=== PATIENT | female | born 1955 | race Hispanic/Latino ===

== ENCOUNTER 2019-04-16 14:35 | Inpatient (IN) | payer MEDICARE ==
[2019-04-16] MEDS ORDERED: oxyCODONE /ACETAMINOPHEN 5-325MG TAB PO PRN (15:27)
[2019-04-16] MEDS ORDERED: POLYETHYLENE GLYCOL 3350 17 GM POWDER PO PRN (15:43)
[2019-04-16] MEDS ORDERED: HYDROcodone/ACETAMINOPHEN 10-325MG TAB PO PRN (15:55)
[2019-04-16] MEDS ORDERED: HYDROcodone/ACETAMINOPHEN 5-325 MG TAB PO PRN (15:55)
[2019-04-16] MEDS: PANTOPRAZOLE 40 MG TAB PO SCH (21:15)
[2019-04-16] MEDS: SODIUM CHLORIDE 1 GM TAB PO SCH (21:16)
[2019-04-16] MEDS: PHENobarbital 32.4 MG TAB PO SCH (21:16)
[2019-04-16] MEDS: PHENYTOIN 100 MG CAPSULE.ER PO SCH (21:16)
[2019-04-16] MEDS: CYCLOBENZAPRINE 10 MG TAB PO SCH (21:16)
[2019-04-16] MEDS: ONDANSETRON 4 MG ODT TAB PO PRN (23:28)
[2019-04-16] MEDS: MELATONIN 5 MG TAB PO PRN (23:32)
[2019-04-17] MEDS: HYDROmorphone 1 MG/1 ML INJ IV PRN ×2 (00:09→13:25)
[2019-04-17 06:10] LABS: Basophils % (Auto) 0.5 % (0.0-1.8); Eosinophils # (Auto) 0.4 K/mm3 (0.0-0.4); Eosinophils % (Auto) 7.8 % (0.0-4.3); Hematocrit 21.9 % (30.3-42.9); Hemoglobin 7.8 gm/dl (10.1-14.3); Lymphocytes # (Auto) 1.1 K/mm3 (1.2-5.4); Lymphocytes % (Auto) 20.6 % (13.4-35.0); Mean Corpuscular HGB Conc 36 % (30-34); Mean Corpuscular Volume 94 fl (79-97); Monocytes # (Auto) 0.3 K/mm3 (0.0-0.8); Platelet Count 214 K/mm3 (140-440); Red Blood Count 2.34 M/mm3 (3.65-5.03); Red Cell Distribution Width 14.2 % (13.2-15.2)
[2019-04-17] MEDS: oxyCODONE 5 MG TAB PO PRN ×2 (06:28→21:29)
[2019-04-17] MEDS: LEVOTHYROXINE 75 MCG TAB PO SCH (06:29)
[2019-04-17] MEDS: PHENYTOIN 100 MG CAPSULE.ER PO SCH ×3 (06:29→21:29)
[2019-04-17 06:30] LABS: Alanine Aminotransferase 10 units/L (7-56); Albumin 2.6 g/dL (3.9-5); BUN/Creatinine Ratio 10; Blood Urea Nitrogen 3 mg/dL (7-17); Calcium 7.7 mg/dL (8.4-10.2); Hemolysis Index 2
[2019-04-17] MEDS: PANTOPRAZOLE 40 MG TAB PO SCH ×2 (08:53→21:30)
[2019-04-17] MEDS: POLYETHYLENE GLYCOL 3350 17 GM POWDER PO SCH (08:53)
[2019-04-17] MEDS: CYCLOBENZAPRINE 10 MG TAB PO SCH ×3 (08:53→21:30)
[2019-04-17] MEDS: SODIUM CHLORIDE 1 GM TAB PO SCH ×2 (08:54→21:28)
[2019-04-17] MEDS: ENOXAPARIN 40 MG/0.4 ML INJ SUB-Q SCH (08:54)
[2019-04-17] MEDS: PHENobarbital 32.4 MG TAB PO SCH ×2 (08:54→21:30)
[2019-04-17] MEDS: levoFLOXacin 500 MG TAB PO SCH ×2 (08:54→10:00)
--- NOTE | 2019-04-17 10:29 | History and Physical Report ---
History of Present Illness Date: 04/17/19 Date of admission: 04/16/19 17:32 Chief Complaint: Right hip fracture History of present illness: 63-year-old female who fell attempting to get out of bed and developed right hip pain. Upon presentation to the ER she was found to have an apparent deformity of the right femur. X-ray confirmed a subtrochanteric displaced hip fracture. Orthopedics was consulted and the patient was scheduled for surgical repair. While in the early stages of her stay she did not receive her antiepileptics and did have a seizure. She has petit mal type seizures. Due to medication she also has chronic hyponatremia/SIADH. Surgery was delayed due to other emergent surgical interventions in the OR. Once she was taken back with Dr. Yen on 04/13 she had an uneventful placement of an intramedullary nail. Pain control is been primary issue for her and she has continued to utilize scheduled oral medications as well as IV Dilaudid. She has impaired hearing. After the patient was medically stabilized they were transferred for further rehabilitation. All available medical records have been reviewed. Plan of care was discussed with patient. I was called last night with a request for continuing her IV Dilaudid. Had the opportunity this morning to discuss with her that we need to transition her to oral pain control methods and we will continue to use oral medications with IV Dilaudid in the short-term only for breakthrough pain. Due to all of this as well as from prior issues she also has constipation which is poorly controlled. Will obtain a KUB to ensure there is not a stool blockage. Labs this morning also show the patient has increasing anemia, will recheck an anemia panel and monitor this as well. Potassium is also reduced and will replace that as well. Past History Past Medical History: cancer (Breast left), hypothyroidism, other (Epilepsy, deaf, iatrogenic SIADH) Past Surgical History: appendectomy, hysterectomy, mastectomy (And recon struction) Social history: , lives with family. denies: smoking (Former), alcohol abuse Family history: CAD, diabetes, hypertension, stroke Medications and Allergies Allergies Allergy/AdvReac Type Severity Reaction Status Date / Time latex Allergy Rash Verified 04/13/19 09:06 meperidine [From Demerol] Allergy Unknown Verified 04/09/19 05:03 Sulfa (Sulfonamide Allergy Unknown Verified 04/09/19 05:03 Antibiotics) Home Medications Medication Instructions Recorded Confirmed Last Taken Type L. Acidophilus/L. Rhamnosus 1 each PO QDAY 04/09/19 04/17/19 Unknown History [Probiotic 15 Billion Cell Cap] Levothyroxine [Synthroid] 75 mcg PO QAM 04/09/19 04/17/19 Unknown History Melatonin [Melatonin 10MG TAB] 10 mg PO QDAY 04/09/19 04/17/19 Unknown History Meloxicam [Mobic] 15 mg PO QDAY 04/09/19 04/17/19 Unknown History PHENobarbitaL [Phenobarbital] 64.8 mg PO BID 04/09/19 04/17/19 Unknown History Phenytoin [Dilantin] 100 mg PO TID 04/09/19 04/17/19 Unknown History Sumatriptan 25 mg PO BID 04/10/19 04/17/19 Unknown History Acetaminophen [Acetaminophen TAB] 650 mg PO Q6H PRN tablet 04/16/19 04/17/19 Unknown Rx Cyclobenzaprine [Flexeril 10 MG 10 mg PO TID tablet 04/16/19 04/17/19 Unknown Rx TAB] HYDROcodone/APAP 10-325 [[place] 1 each PO Q6H tablet 04/16/19 04/17/19 Unknown Rx 10-325 mg TAB] Pantoprazole [Protonix TAB] 40 mg PO DAILY tablet 04/16/19 04/17/19 Unknown Rx levoFLOXacin [Levaquin TAB] 500 mg PO Q24H #3 tablet 04/16/19 04/17/19 Unknown Rx polyethylene glycoL 3350 [Miralax 17 gm PO QDAY PRN powd.pack 04/16/19 04/17/19 Unknown Rx 3350] Active Meds: Active Medications Acetaminophen (Tylenol) 650 mg PO Q4H PRN PRN Reason: Pain MILD(1-3)/Fever >100.5/ARROYO Bisacodyl (Dulcolax) 10 mg ME QDAY PRN PRN Reason: Constipation Cyclobenzaprine HCl (Flexeril) 10 mg PO TID [facility] Last Admin: 04/17/19 08:53 Dose: 10 mg Documented by: Enoxaparin Sodium (Enoxaparin) 40 mg SUB-Q QDAY [facility] Last Admin: 04/17/19 08:54 Dose: 40 mg Documented by: Hydromorphone HCl (Dilaudid) 1 mg IV Q6H PRN PRN Reason: Pain , Severe (7-10) Stop: 04/19/19 23:49 Last Admin: 04/17/19 00:09 Dose: 1 mg Documented by: Levofloxacin (Levaquin) 500 mg PO Q24HR [facility] Stop: 04/20/19 09:59 Last Admin: 04/17/19 08:54 Dose: 500 mg Documented by: Levothyroxine Sodium (Synthroid) 75 mcg PO DAILY@0600 [facility] Last Admin: 04/17/19 06:29 Dose: 75 mcg Documented by: Melatonin (Melatonin) 10 mg PO QHS PRN PRN Reason: Sleep Last Admin: 04/16/19 23:32 Dose: 10 mg Documented by: Ondansetron HCl (Zofran Odt) 4 mg PO Q8H PRN PRN Reason: Nausea And Vomiting Last Admin: 04/16/19 23:28 Dose: 4 mg Documented by: Oxycodone HCl (Roxicodone) 10 mg PO Q4H PRN PRN Reason: Pain, Moderate (4-6) Last Admin: 04/17/19 06:28 Dose: 10 mg Documented by: Pantoprazole Sodium (Protonix) 40 mg PO BID [facility] Last Admin: 04/17/19 08:53 Dose: 40 mg Documented by: Phenobarbital (Phenobarbital) 64.8 mg PO BID [facility] Last Admin: 04/17/19 08:54 Dose: 64.8 mg Documented by: Phenytoin (Dilantin) 100 mg PO Q8HR [facility] Last Admin: 04/17/19 06:29 Dose: 100 mg Documented by: Polyethylene Glycol (Miralax 3350) 17 gm PO QDAY [facility] Last Admin: 04/17/19 08:53 Dose: 17 gm Documented by: Sodium Chloride (Sodium Chloride) 2 gm PO BID [facility] Last Admin: 04/17/19 08:54 Dose: 2 gm Documented by: Review of Systems All systems: negative (Rehab review of system) Constitutional: weakness, malaise Ears, nose, mouth and throat: decreased hearing Cardiovascular: no rapid/irregular heart beat, no edema Respiratory: no cough with sputum Gastrointestinal: diarrhea, constipation, no nausea, no vomiting Musculoskeletal: shooting leg pain, gait dysfunction Integumentary: wounds (Right leg surgical), no rash, no pruritis, no redness Neurological: seizures Psychiatric: no anxiety Exam - Exam Narrative exam: MUSCULOSKELETAL SPECIALTY EXAM CONSTITUTIONAL: Well developed, well nourished, appropriately groomed LYMPHATIC: No appreciable abnormalities palpable in neck EENT: Decreased hearing but does read lips RESPIRATORY: Clear to auscultation bilaterally, no increased work of breathing CARDIOVASCULAR: Regular Rate/ Rhythm, slight swelling on the right lower extremity but no edema or tenderness in BUE or BLE. Pulses palpable in all extremities. All extremities warm. GI: + bowel sounds, soft, NTTP, slightly distended and tympanic to percussion INTEGUMENTARY: Right lower extremity with surgical wound which is clean dry and intact, otherwise normal, no lesion, rash, masses or bruising noted in extremities. MUSCULOSKELETAL: Right lower extremity has appropriate tenderness to palpation otherwise BUE and BLE normal without defect, crepitus, subluxation, effusion, arthritic changes or TTP. BUE 4+/5, good ROM, with normal tone. LLE 4+/5 good ROM, with normal tone, RLE 3/5 with decreased range of motion due to postsurgical pain NEURO: CN 2-12 grossly intact. Sensation intact in all extremities. Reflexes 2+ bi laterally at biceps, brachioradialis and patella. No clonus at ankles. Coordination intact in BUE. No tremor noted in 4 extremities. POSTURE and GAIT: Sitting posture good. Balance appears reasonable. Gait deferred until seen with therapy. PSYCH: Alert, oriented x3, affect appears normal. Insight appears intact. - Constitutional Vitals: Vital Signs - 12hr 04/16/19 04/17/19 04/17/19 23:27 02:50 05:38 Temperature 98.4 F 98.3 F Pulse Rate 113 H 96 H Respiratory 16 18 16 Rate Blood Pressure 125/80 89/57 O2 Sat by Pulse 97 99 97 Oximetry 04/17/19 07:59 Temperature 97.9 F Pulse Rate 100 H Respiratory 18 Rate Blood Pressure 108/73 O2 Sat by Pulse 97 Oximetry - Labs CBC & Chem 7: 04/17/19 05:47 04/17/19 05:47 Labs: Laboratory Results - last 72 hr 04/17/19 04/17/19 05:47 05:47 WBC 5.4 RBC 2.34 L Hgb 7.8 L Hct 21.9 L MCV 94 MCH 33 H MCHC 36 H RDW 14.2 Plt Count 214 Lymph % (Auto) 20.6 Teller % (Auto) 6.0 Eos % (Auto) 7.8 H Baso % (Auto) 0.5 Lymph # 1.1 L Teller # 0.3 Eos # 0.4 Baso # 0.0 Seg Neutrophils % 65.1 Seg Neutrophils # 3.5 Sodium 134 L Potassium 3.5 L Chloride 98.3 Carbon Dioxide 26 Anion Gap 13 BUN 3 L Creatinine 0.3 L Estimated GFR > 60 BUN/Creatinine Ratio 10 Glucose 127 H Calcium 7.7 L Total Bilirubin 0.20 AST 20 ALT 10 Alkaline Phosphatase 85 Total Protein 4.7 L Albumin 2.6 L Albumin/Globulin Ratio 1.2 Assessment and Plan Assessment and plan: Patient was assessed and evaluated for Acute Inpatient Rehab Unit. Due to the patients above-mentioned medical complexity, along with decreased functional mobility and self care, this patient continues to require and be appropriate for a comprehensive, multidisciplinary [id number] rehabilitation program. These needs cannot be met in an outpatient or other less intensive setting. The patient would continue to benefit from skilled therapy intervention for at least 3 hours per day, five days a week, with techniques specific to the needs of the patient to improve function, activities of daily living, and reintegration into the community. The patient continues to require: -- OT to improve ROM, self-care, and learn use of adaptive equipment -- PT to improve strength and balance, functional transfers, and ambulation with energy conservation techniques to improve functional mobility -- 24 hour RN to ensure and prevent skin breakdown, promote progressive independence while ensuring safety, ensure education regarding medications, and incorporation of the rehabilitation at the bedside -- 24 hour Valance Cutter to coordinate this interdisciplinary program, and to manage/prevent complications as a result of the patients medical comorbidities. -Plan of care by day 4 -Weekly team conferences With such a program, there is a reasonable certainty that the goals individualized for this patient can be achieved within the specified length of stay. Right hip fracture: Status post IM nail on April [address] Yen. Patient remains partial weightbearing. Monitor for any signs of wound infection. Mobility as tolerated with progressive increasing. Maintain pain control and wean the patient over to oral pain control only. Epilepsy: Continue medications, seizure precautions. Monitor for any signs of seizure. Recommended to patient that she follow-up with a neurologist as she has not seen one in quite some time and gets all medications through PCP. Phenytoin and phenobarbital levels checked on admission. Phenytoin 16.1 on 04/09/2019 and phenobarbital 22.7 on 04/09/2019. Continue to monitor Iatrogenic SIADH: Previous notes reviewed from nephrology, will avoid excessive normal saline. Continue sodium chloride tablets. Monitor her electrolytes on a regular basis and replace as needed. Urinary tract infection: Pseudomonas aeruginosa diagnosed and cultured on the acute care side. Culture and sensitivity reviewed and bacteria is susceptible to Levaquin which she is on. Continue for the next several days. Hypothyroidism: Continue replacement monitor Constipation: Continue medications. Discussed with patient her history which includes constipation and diarrhea. She has tried other items such as Linzess in the past without much relief. Will obtain a KUB to ensure that she does not have a large stool burden at this time. Anemia: Likely postsurgical. Awaiting anemia panel, will replace components as needed ADL dysfunction: OT will work on improving ability to perform ADLs (including assistive devices) to increase independence and decrease caregiver burden and improve functional transfers and mobility training. Difficulty walking: PT will work on gait training and proper use of assistive devices and advance as appropriate to use of stairs and outside ambulation on uneven surfaces. Unsteadiness on feet: PT will work on improving static and dynamic sitting and standing balance as well as proper use of assistive devices to decrease risk of falls. Abnormality of gait: PT will work to improve safety and efficiency of gait through neuromotor training and gait training along with instruction on proper u se of assistive devices. Muscle weakness: PT & OT will work on strengthening exercises to improve f unctional strength including mixture of closed and open kinetic chain exercises. Debility: PT & OT will work on improving overall functional status to improve participation with ADLs, mobility and social involvement. Fatigue: PT & OT will work on improving endurance through aerobic exercises and therapeutic activity while monitoring patients tolerance for activity and vital signs as needed. DVT ppx: Lovenox Pain: Continue physical modalities in therapy and pain medications as needed to achieve functional pain control. Patient was not weaned off of IV pain medicines before being received in rehab. Have had a prolonged discussion with her and nursing so that we understand that she will be utilizing IV Dilaudid only for breakthrough pain and will be utilizing oral medications for the bulk of her normal pain control. Goal is to wean her off of IV Dilaudid over the next several days and to continue to wean her off of the oral medications as we go forward in hopes of returning her home with very little in the way of pain control. Sleep: Monitor and address as needed. Bowel: Monitor and address as needed. Appetite: Monitor and address as needed. Discharge planning: Pending therapy progress and care plan meeting. Will continue discussion with therapy team, SW, patient and family. Restrictions/ Precautions: Falls WB status: FWB Functional Hx: ADLs: Independent Cognition: Independent Mobility: No AD Barriers to Discharge: Decreased mobility and ability to perform self care, balance deficits, weakness Estimated Length of Stay: 10-14 days Discharge Destination: Home with family POST ADMISSION PHYSICIAN EVALUATION I have examined the patient and find that functional status, medical condition and appropriateness for IRU admission are essentially unchanged from those described in the preadmission screening. Will monitor for worsening anemia, pain control, wound infection, decreased mobility, DVT/PE, bowel and bladder complications and complications due to seizures, SIADH, insomnia, constipation and electrolyte abnormalities. Will attempt to avoid occurrence of these issues or treat them if they present themselves.
[2019-04-17 12:51] LABS: Iron 50 ug/dL (37-170); Total Iron Binding Capacity 150 mcg/dL (250-450)
--- NOTE | 2019-04-17 13:53 | XRay Report ---
ABDOMEN 1 VIEW(S) INDICATION: Abd pain, distension COMPARISON: None available. FINDINGS: Bowel gas pattern: Large amounts of feces is present right side of the colon. Gas scattered throughou t the small bowel. Free air: None. Calcified gallstones: None seen. Calcified urinary tract calculi: None seen. Additional Findings: None. Skeletal structures: No acute abnormality. IMPRESSION: 1. Abnormal but nonspecific intestinal gas pattern Signer Name: Reji Galicia MD Signed: 04/17/2019 1:49 PM Workstation Name: [id number]
[2019-04-17] MEDS: POTASSIUM CHLORIDE ER 20 MEQ TAB PO SCH (15:57)
[2019-04-17] MEDS: MELATONIN 5 MG TAB PO PRN (21:44)
[2019-04-18] MEDS: oxyCODONE 5 MG TAB PO PRN ×5 (01:09→21:43)
[2019-04-18] MEDS: PHENYTOIN 100 MG CAPSULE.ER PO SCH ×3 (04:59→21:43)
[2019-04-18] MEDS: LEVOTHYROXINE 75 MCG TAB PO SCH (05:00)
[2019-04-18] MEDS: PANTOPRAZOLE 40 MG TAB PO SCH ×2 (08:49→21:44)
[2019-04-18] MEDS: ENOXAPARIN 40 MG/0.4 ML INJ SUB-Q SCH (08:49)
[2019-04-18] MEDS: POTASSIUM CHLORIDE ER 20 MEQ TAB PO SCH (08:49)
[2019-04-18] MEDS: PHENobarbital 32.4 MG TAB PO SCH ×2 (08:49→21:43)
[2019-04-18] MEDS: CYCLOBENZAPRINE 10 MG TAB PO SCH ×3 (08:49→21:43)
[2019-04-18] MEDS: levoFLOXacin 500 MG TAB PO SCH ×2 (08:50→10:00)
[2019-04-18] MEDS: POLYETHYLENE GLYCOL 3350 17 GM POWDER PO SCH (08:50)
[2019-04-18] MEDS: SODIUM CHLORIDE 1 GM TAB PO SCH ×2 (08:51→21:43)
[2019-04-18] MEDS: HYDROmorphone 1 MG/1 ML INJ IV PRN (16:31)
[2019-04-18] MEDS: MELATONIN 5 MG TAB PO PRN (21:44)
[2019-04-19] MEDS: HYDROmorphone 1 MG/1 ML INJ IV PRN ×2 (03:05→21:25)
[2019-04-19] MEDS: LEVOTHYROXINE 75 MCG TAB PO SCH (06:54)
[2019-04-19] MEDS: PHENYTOIN 100 MG CAPSULE.ER PO SCH ×3 (06:54→21:20)
[2019-04-19] MEDS: oxyCODONE 5 MG TAB PO PRN ×4 (07:00→18:59)
[2019-04-19 08:54] LABS: Hematocrit 24.6 % (30.3-42.9); Hemoglobin 8.5 gm/dl (10.1-14.3); Mean Corpuscular HGB Conc 35 % (30-34); Mean Corpuscular Volume 95 fl (79-97); Platelet Count 183 K/mm3 (140-440); Red Blood Count 2.59 M/mm3 (3.65-5.03); Red Cell Distribution Width 14.6 % (13.2-15.2)
[2019-04-19 09:06] LABS: BUN/Creatinine Ratio 20; Blood Urea Nitrogen 6 mg/dL (7-17); Calcium 7.9 mg/dL (8.4-10.2); Hemolysis Index 2
[2019-04-19] MEDS: ENOXAPARIN 40 MG/0.4 ML INJ SUB-Q SCH (10:33)
[2019-04-19] MEDS: levoFLOXacin 500 MG TAB PO SCH (10:33)
[2019-04-19] MEDS: PHENobarbital 32.4 MG TAB PO SCH ×2 (10:34→21:20)
[2019-04-19] MEDS: PANTOPRAZOLE 40 MG TAB PO SCH ×2 (10:34→21:21)
[2019-04-19] MEDS: CYCLOBENZAPRINE 10 MG TAB PO SCH ×3 (10:34→21:21)
[2019-04-19] MEDS: POTASSIUM CHLORIDE ER 20 MEQ TAB PO SCH (10:34)
[2019-04-19] MEDS: POLYETHYLENE GLYCOL 3350 17 GM POWDER PO SCH (10:35)
[2019-04-19] MEDS: SODIUM CHLORIDE 1 GM TAB PO SCH ×2 (10:35→21:20)
--- NOTE | 2019-04-19 12:03 | Progress Note ---
Subjective Date of service: 04/19/19 Principal diagnosis: Right hip fracture Interval history: 63-year-old female who fell attempting to get out of bed and developed right hip pain. Upon presentation to the ER she was found to have an apparent deformity of the right femur. X-ray confirmed a subtrochanteric displaced hip fracture. Orthopedics was consulted and the patient was scheduled for surgical repair. While in the early stages of her stay she did not receive her antiepileptics and did have a seizure. She has petit mal type seizures. Due to medication she also has chronic hyponatremia/SIADH. Surgery was delayed due to other emergent surgical interventions in the OR. Once she was taken back with Dr. Yen on 04/13 she had an uneventful placement of an intramedullary nail. Pain control is been primary issue for her and she has continued to utilize scheduled oral medications as well as IV Dilaudid. She has impaired hearing. After the patient was medically stabilized they were transferred for further rehabilitation. All available medical records have been reviewed. Plan of care was discussed with patient. Interval History: Patient is participating in therapy and making reasonable progress. Taking rest breaks as needed. +BM. Denies palpitations, dyspnea, cough, N/V, weakness. Right hip fracture: Continue to monitor for any signs of wound infection or breakdown. Healing well currently. Maintain partial weightbearing per surgeon until cleared for weightbearing as tolerated. Epilepsy: Continue medications and seizure precautions. Phenytoin and phenoba rbital levels were checked this morning and are relatively consistent with levels on admission however both are slightly lower. Monitor and adjust as needed. Iatrogenic SIADH: Sodium level is worse today at 130. Per nephrology note on acute care side, they recommended a 35 ounce fluid restriction along with continuing the salt tabs and not using a saline infusion. Will ensure that the patient is adhering to the fluid restriction. Urinary tract infection: We will complete antibiotic tomorrow. Hypothyroidism: Continue medications Constipation: KUB reviewed and shows large stool burden on the right lower quadrant. Patient denies bowel movement after I saw her Friday. Will adjust bowel meds to hopefully have better success in relieving the constipation. Anemia: Likely due to acute blood loss. Short course of iron replacement and vitamin C. Pain: Still not well controlled. She is taking the oral pain meds and discussed with her again the need to wean off of Dilaudid. Able to work through therapy despite yelling and screaming out in pain at times. After seeing the patient, she now tells nursing that she has pain in her right calf. There is swelling in that calf as this is the operative side. Not red or warm however will check Doppler to rule out DVT. All records, vitals, labs and medications were reviewed. No other issues per patient, nursing or therapy. Objective - Exam Narrative Exam: MUSCULOSKELETAL SPECIALTY EXAM CONSTITUTIONAL: Well developed, well nourished, appropriately groomed EENT: Decreased hearing but does read lips RESPIRATORY: Clear to auscultation bilaterally, no increased work of breathing CARDIOVASCULAR: Regular Rate/ Rhythm, slight swelling on the right lower extremity but no edema or tenderness in BUE or BLE. Pulses palpable in all extremities. All extremities warm. GI: + bowel sounds, soft, NTTP, slightly distended INTEGUMENTARY: Right lower extremity with surgical wound which is clean dry and intact, otherwise normal, no lesion, rash, masses or bruising noted in extremities. MUSCULOSKELETAL: Right lower extremity has appropriate tenderness to palpation otherwise BUE and BLE normal without defect, crepitus, subluxation, effusion, arthritic changes or TTP. BUE 4+/5, good ROM, with normal tone. LLE 4+/5 good ROM, with normal tone, RLE 3/5 with decreased range of motion due to postsurgical pain NEURO: CN 2-12 grossly intact. Sensation intact in all extremities. No tremor noted in 4 extremities. POSTURE and GAIT: Sitting posture good. Balance appears reasonable. Gait slowed utilizing rolling walker with therapy support. Antalgic in nature. PSYCH: Alert, oriented x3, affect appears normal. Insight appears intact. - Constitutional Vitals: Vital Signs - 12hr 04/19/19 04/19/19 04/19/19 03:00 07:28 07:31 Temperature 98.7 F Pulse Rate 100 H Respiratory 16 21 Rate Blood Pressure 87/60 Blood Pressure [Right] O2 Sat by Pulse 95 95 Oximetry 04/19/19 04/19/19 04/19/19 08:03 08:13 08:14 Temperature 98.7 F 98.0 F Pulse Rate 104 H 100 H 101 H Respiratory 21 18 Rate Blood Pressure 96/62 Blood Pressure 87/60 [Right] O2 Sat by Pulse 99 92 93 Oximetry - Allied health notes Allied health notes reviewed: nursing, PT, OT FIMS assessment as documented by PT/OT/ST: Locomotion- walk/wheelchair Ambulation Distance 64 - Labs CBC & Chem 7: 04/19/19 08:18 04/19/19 08:18 Labs: Laboratory Results - last 72 hr 04/17/19 04/17/19 04/17/19 05:47 05:47 11:42 WBC 5.4 RBC 2.34 L Hgb 7.8 L Hct 21.9 L MCV 94 MCH 33 H MCHC 36 H RDW 14.2 Plt Count 214 Lymph % (Auto) 20.6 [place] % (Auto) 6.0 Eos % (Auto) 7.8 H Baso % (Auto) 0.5 Lymph # 1.1 L [place] # 0.3 Eos # 0.4 Baso # 0.0 Seg Neutrophils % 65.1 Seg Neutrophils # 3.5 Sodium 134 L Potassium 3.5 L Chloride 98.3 Carbon Dioxide 26 Anion Gap 13 BUN 3 L Creatinine 0.3 L Estimated GFR > 60 BUN/Creatinine Ratio 10 Glucose 127 H Calcium 7.7 L Iron 50 TIBC 150 L Ferritin Total Bilirubin 0.20 AST 20 ALT 10 Alkaline Phosphatase 85 Total Protein 4.7 L Albumin 2.6 L Albumin/Globulin Ratio 1.2 Vitamin B12 Folate 04/17/19 04/17/19 04/17/19 11:42 11:42 11:42 WBC RBC Hgb Hct MCV MCH MCHC RDW Plt Count Lymph % (Auto) [place] % (Auto) Eos % (Auto) Baso % (Auto) Lymph # [place] # Eos # Baso # Seg Neutrophils % Seg Neutrophils # Sodium Potassium Chloride Carbon Dioxide Anion Gap BUN Creatinine Estimated GFR BUN/Creatinine Ratio Glucose Calcium Iron TIBC Ferritin 90.4 Total Bilirubin AST ALT Alkaline Phosphatase Total Protein Albumin Albumin/Globulin Ratio Vitamin B12 423.7 Folate 13.80 04/19/19 04/19/19 08:18 08:18 WBC 7.4 RBC 2.59 L Hgb 8.5 L Hct 24.6 L MCV 95 MCH 33 H MCHC 35 H RDW 14.6 Plt Count 183 Lymph % (Auto) [place] % (Auto) Eos % (Auto) Baso % (Auto) Lymph # [place] # Eos # Baso # Seg Neutrophils % Seg Neutrophils # Sodium 130 L Potassium 4.3 D Chloride 97.7 L Carbon Dioxide 21 L Anion Gap 16 BUN 6 L Creatinine 0.3 L Estimated GFR > 60 BUN/Creatinine Ratio 20 Glucose 123 H Calcium 7.9 L Iron TIBC Ferritin Total Bilirubin AST ALT Alkaline Phosphatase Total Protein Albumin Albumin/Globulin Ratio Vitamin B12 Folate - Imaging and cardiology Abdominal x-ray: report reviewed, image reviewed Assessment and Plan Right hip fracture: Status post IM nail on April [address] Yen. Patient remains partial weightbearing. Monitor for any signs of wound infection. Mobility as tolerated with progressive increasing. Maintain pain control and wean the patient over to oral pain control only. Epilepsy: Continue medications, seizure precautions. Monitor for any signs of seizure. Recommended to patient that she follow-up with a neurologist as she has not seen one in quite some time and gets all medications through PCP. Phenytoin and phenobarbital levels checked on admission. Phenytoin 16.1 on 04/09/2019 and phenobarbital 22.7 on 04/09/2019. Continue to monitor Pain and swelling in the right calf: Duplex ordered to rule out DVT. Iatrogenic SIADH: Previous notes reviewed from nephrology, will avoid excessive normal saline. Continue sodium chloride tablets. Monitor her electrolytes on a regular basis and replace as needed. Continue fluid restriction. Urinary tract infection: Pseudomonas aeruginosa diagnosed and cultured on the acute care side. Culture and sensitivity reviewed and bacteria is susceptible to Levaquin which she is on. Continue for the next several days. Hypothyroidism: Continue replacement monitor Constipation: Continue medications. Discussed with patient her history which includes constipation and diarrhea. KUB does show large right-sided stool b urden. Adjust bowel medications and monitor for improvement. Anemia: Likely postsurgical. Short course of iron and vitamin C. Continue to monitor ADL dysfunction: OT will work on improving ability to perform ADLs (including assistive devices) to increase independence and decrease caregiver burden and improve functional transfers and mobility training. Difficulty walking: PT will work on gait training and proper use of assistive devices and advance as appropriate to use of stairs and outside ambulation on uneven surfaces. Unsteadiness on feet: PT will work on improving static and dynamic sitting and standing balance as well as proper use of assistive devices to decrease risk of falls. Abnormality of gait: PT will work to improve safety and efficiency of gait through neuromotor training and gait training along with instruction on proper use of assistive devices. Muscle weakness: PT & OT will work on strengthening exercises to improve functional strength including mixture of closed and open kinetic chain exercises. Debility: PT & OT will work on improving overall functional status to improve participation with ADLs, mobility and social involvement. Fatigue: PT & OT will work on improving endurance through aerobic exercises and therapeutic activity while monitoring patients tolerance for activity and vital signs as needed. DVT ppx: Lovenox Pain: Continue physical modalities in therapy and pain medications as needed to achieve functional pain control. Patient was not weaned off of IV pain medicines before being received in rehab. Have had a prolonged discussion with her and nursing so that we understand that she will be utilizing IV Dilaudid only for breakthrough pain and will be utilizing oral medications for the bulk of her normal pain control. Goal is to wean her off of IV Dilaudid over the next several days and to continue to wean her off of the oral medications as we go forward in hopes of returning her home with very little in the way of pain control. Sleep: Monitor and address as needed. Bowel: Monitor and address as needed. Appetite: Monitor and address as needed. Discharge planning: Pending therapy progress and care plan meeting. Will co ntinue discussion with therapy team, SW, patient and family. Restrictions/ Precautions: Falls, fluid, deaf or severely decreased hearing WB status: FWB Functional Hx: ADLs: Independent Cognition: Independent Mobility: No AD Barriers to Discharge: Decreased mobility and ability to perform self care, balance deficits, weakness Estimated Length of Stay: 10-14 days Discharge Destination: Home with family
--- NOTE | 2019-04-19 15:25 | XRay Report ---
RIGHT HIP HISTORY: Follow-up fracture. COMPARISON: 04/09/2019 TECHNIQUE: 3 views of the right hip obtained. The images were obtained portably and there is no later al view. FINDINGS: Bones: A right hip nail and intramedullary diogo have been placed since the last exam. The diogo traverse s an oblique subtrochanteric fracture. Better alignment of fracture fragments compared to the previou s exam. There is increased density at the fracture system with callus or heterotopic new bone formati on. Joint spaces: Mild osteoarthritis of the hip. Soft tissues: Normal. Additional findings: None. IMPRESSION: 1. Status post ORIF of healing right subtrochanteric femur fracture. Signer Name: Nasir Pascal MD Signed: 04/19/2019 3:20 PM Workstation Name: [id number]
[2019-04-19] MEDS ORDERED: SENNOSIDES 8.6 MG TAB PO PRN (16:00)
--- NOTE | 2019-04-19 18:18 | Vascular Lab Report ---
DUPLEX DOPPLER LOWER EXTREMITY VEINS, RIGHT INDICATION: Pain and swelling in calf, r/o DVT. Postop hip. TECHNIQUE: Duplex doppler imaging was performed through the veins of the right lower extremity using venous comp ression and other maneuvers. COMPARISON: No relevant prior imaging study available. FINDINGS: Right Common femoral vein: Negative. Right Superficial femoral vein: Negative. Right Popliteal vein: Negative. Right Calf veins: Negative. Additional findings: Small knee effusion. IMPRESSION: Negative for DVT. Signer Name: oJsh Boone MD Signed: 04/19/2019 6:13 PM Workstation Name: [id number]
[2019-04-19] MEDS: FERROUS SULFATE 325 MG TAB PO SCH (21:20)
[2019-04-19] MEDS: ASCORBIC ACID 500 MG TAB PO SCH (21:21)
--- NOTE | 2019-04-20 00:40 | IRU Plan of Care ---
Interdisciplinary Plan of Care - IP IRU INTERDISCIPLINARY PLAN: [facility] Inpatient Rehab Unit Plan of Care IRU Interdisciplinary Care Plan Start: 04/16/19 17:48 Freq: Admission then PRN Status: Active Protocol: Document 04/19/19 18:41 TH (Rec: 04/19/19 18:44 TH [id number]) Interdisciplinary Problem List Interdisciplinary Problem List Interdisciplinary Problem List Impaired Bathing/Grooming, Query Text:Answers will Trigger Problems Impaired Dressing,Impaired and Outcomes on Worklist. Mobility,Impaired Transfers, Impaired Toileting,Pain Management,Discharge Concerns, Impaired Safety IRU Interdisciplinary Care Plan Therapy Services Therapy Services Will Include: Physical Therapy,Occupational Query Text:Patient will be seen for a Therapy minimum of 3 hours of daily therapy 5 out of 7 days a week. Therapy intensity may be adjusted within a 7 consecutive day period to effectively serve the individual needs of the patient. Treatment Frequency/Intensity/Duration Treatment Frequency 5 days per week Treatment Intensity 3 hours per day Treatment Duration 14-18 days Problem Area: Eating/Swallowing Eating/Swallowing Outcomes Eating/Swallowing Interventions Problem Area: Bathing/Grooming Bathing/Grooming Outcomes Improve [place] w/ Grooming,Improve [place] w/ Bathing Bathing/Grooming Interventions ADL Training,Use of Assistive Devices,Therapeutic Exercise, Therapeutic Activity,Activity Tolerance Work,Patient/ Caregiver Education Problem Area: Dressing Dressing Outcomes Improve [place] w/ UB Dressing,Improve [place] w/ LB Dressing Dressing Interventions ADL Training,Use of Assistive Devices,Therapeutic Exercise, Patient/Caregiver Education Problem Area: Mobility Mobility Outcomes Improve [place] w/ Bed Mobility Mobility Interventions Therapeutic Exercise,Patient/ Caregiver Education Problem Area: Transfers Transfers Outcomes Improve [place] w/ Bed Transfers,Improve [place] w/ Toilet Transfers,Improve [place] w/ Tub/Shower Transfers Transfers Interventions Transfer Training,Therapeutic Exercise,Use of Assistive Devices,Patient/Caregiver Education Problem Area: Bowel/Bladder Managment Bowel/Bladder Outcomes Bowel/Bladder Interventions Problem Area: Toileting Toileting Outcomes Improve [place] w/ Toileting Toileting Interventions ADL Training,Use of Assistive Devices,Patient/Caregiver Education Problem Area: Nutrition Nutrition Outcomes Nutrition Interventions Problem Area: Comprehension Comprehension Outcomes Comprehension Interventions Problem Area: Expression Expression Outcomes Expression Interventions Problem Area: Problem Solving Problem Solving Outcomes Problem Solving Interventions Problem Area: Memory Memory Outcomes Memory Interventions Problem Area: Pain Management Pain Management Outcomes Demonstrate/Verbalize Pain Strategies Pain Management Interventions Medication Management,Use of Devices/Modalities (TENS, hot pack, cold pack, etc.), Positioning/Turning,Patient/ Caregiver Education Problem Area: Knowledge Deficits Knowledge Deficits Outcomes Knowledge Deficits Interventions Problem Area: Skin/Tissue Integrity Skin/Tissue Integrity Outcomes Skin/Tissue Integrity Interventions Problem Area: Social Interaction Social Interaction Outcomes Social Interaction Interventions Problem Area: Adjustment to Disability Adjustment to Disability Outcomes Adjustment to Disability Interventions Problem Area: Discharge Concerns Discharge Concerns Outcomes Discharge w/ Necessary Equipment,Have Home Health/ Outpatient Services Discharge Concerns Interventions Discharge Planning,Family/ Caregiver Training Problem Area: Community Reintegration Community Reintegration Outcomes Community Reintegration Interventions Problem Area: Home Management Home Management Outcomes Home Management Interventions Problem Area: Safety Safety Outcomes Perform Selfcare Safely Safety Interventions Re-Educate Patient/Caregiver for Safety (Post Fall Update) Problem Area: Medication Education Medication Education Outcomes Medication Education Interventions Problem Area: Diabetes Education Diabetes Education Outcomes Diabetes Education Interventions Problem Area: Oxygenation Oxygenation Outcomes Oxygenation Interventions Problem Area: Cardiovascular Cardiovascular Outcomes Cardiovascular Interventions Physician Only Medical Prognosis and Rehabilitation Good rehab potential and good medical prognosis. Pain control is major factor. Potential (Completed by Physician) This plan of care has been developed based on the findings from the pre- admission assessment, post admission physician evaluation, information gathered from the assessments from all therapy disciplines and other pertinent clinicians. The plan of care has been reviewed and discussed in collaboration with the interdisciplinary team. The plan of care will be reviewed and updated at least weekly.
[2019-04-20] MEDS: oxyCODONE 5 MG TAB PO PRN ×4 (01:41→23:02)
[2019-04-20] MEDS: MELATONIN 5 MG TAB PO PRN ×2 (01:43→02:00)
[2019-04-20] MEDS: LEVOTHYROXINE 75 MCG TAB PO SCH (05:35)
[2019-04-20] MEDS: PHENYTOIN 100 MG CAPSULE.ER PO SCH ×3 (05:35→22:40)
[2019-04-20] MEDS: ENOXAPARIN 40 MG/0.4 ML INJ SUB-Q SCH (10:14)
[2019-04-20] MEDS: SODIUM CHLORIDE 1 GM TAB PO SCH ×2 (10:15→22:40)
[2019-04-20] MEDS: PANTOPRAZOLE 40 MG TAB PO SCH ×2 (10:16→22:36)
[2019-04-20] MEDS: ASCORBIC ACID 500 MG TAB PO SCH ×2 (10:16→22:40)
[2019-04-20] MEDS: PHENobarbital 32.4 MG TAB PO SCH ×2 (10:16→22:36)
[2019-04-20] MEDS: FERROUS SULFATE 325 MG TAB PO SCH ×2 (10:16→22:40)
[2019-04-20] MEDS: POTASSIUM CHLORIDE ER 20 MEQ TAB PO SCH (10:16)
[2019-04-20] MEDS: POLYETHYLENE GLYCOL 3350 17 GM POWDER PO SCH (10:17)
[2019-04-20] MEDS: CYCLOBENZAPRINE 10 MG TAB PO SCH ×3 (10:17→22:45)
--- NOTE | 2019-04-20 12:18 | Progress Note ---
Subjective Date of service: 04/20/19 Principal diagnosis: Right hip fracture Interval history: 63-year-old female who fell attempting to get out of bed and developed right hip pain. Upon presentation to the ER she was found to have an apparent deformity of the right femur. X-ray confirmed a subtrochanteric displaced hip fracture. Orthopedics was consulted and the patient was scheduled for surgical repair. While in the early stages of her stay she did not receive her antiepileptics and did have a seizure. She has petit mal type seizures. Due to medication she also has chronic hyponatremia/SIADH. Surgery was delayed due to other emergent surgical interventions in the OR. Once she was taken back with Dr. Yen on 04/13 she had an uneventful placement of an intramedullary nail. Pain control is been primary issue for her and she has continued to utilize scheduled oral medications as well as IV Dilaudid. She has impaired hearing. After the patient was medically stabilized they were transferred for further rehabilitation. All available medical records have been reviewed. Plan of care was discussed with patient. Interval History: Patient is participating in therapy and making reasonable progress. Taking rest breaks as needed. -BM. Denies palpitations, dyspnea, cough, N/V, weakness. Right hip fracture: Continue to monitor for any signs of wound infection or breakdown. Healing well currently. Maintain partial weightbearing per surgeon until cleared for weightbearing as tolerated. Epilepsy: Continue medications and seizure precautions. Phenytoin and phenoba rbital levels were checked this 04/20 and are relatively consistent with levels on admission however both are slightly lower. Monitor and adjust as needed. Iatrogenic SIADH: Sodium level is worse 04/20 at 130. Per nephrology note on acute care side, they recommended a 35 ounce fluid restriction along with continuing the salt tabs and not using a saline infusion. Will ensure that the patient is adhering to the fluid restriction. Urinary tract infection: Antibiotic completed today. Monitor for recurrence. Hypothyroidism: Continue medications Constipation: KUB reviewed and shows large stool burden on the right lower quadrant. Meds adjusted yesterday. Monitor Anemia: Likely due to acute blood loss. Short course of iron replacement and vitamin C. Pain: Still not well controlled. She is taking the oral pain meds and discussed with her again the need to wean off of Dilaudid. Doppler reviewed - NEG for DVT Hip XR reviewed - NEG for any acute changes, healing All records, vitals, labs and medications were reviewed. No other issues per patient, nursing or therapy. Objective - Exam Narrative Exam: MUSCULOSKELETAL SPECIALTY EXAM CONSTITUTIONAL: Well developed, well nourished, appropriately groomed EENT: Decreased hearing but does read lips RESPIRATORY: Clear to auscultation bilaterally, no increased work of breathing CARDIOVASCULAR: Regular Rate/ Rhythm, slight swelling on the right lower extremity but no edema or tenderness in BUE or BLE. Pulses palpable in all extremities. All extremities warm. GI: + bowel sounds, soft, NTTP, slightly distended INTEGUMENTARY: Right lower extremity with surgical wound which is clean dry and intact, otherwise normal, no lesion, rash, masses or bruising noted in extremities. MUSCULOSKELETAL: Right lower extremity has appropriate tenderness to palpation otherwise BUE and BLE normal without defect, crepitus, subluxation, effusion, arthritic changes or TTP. BUE 4+/5, good ROM, with normal tone. LLE 4+/5 good ROM, with normal tone, RLE 3/5 with decreased range of motion due to postsurgical pain NEURO: CN 2-12 grossly intact. Sensation intact in all extremities. No tremor noted in 4 extremities. POSTURE and GAIT: Sitting posture good. Balance appears reasonable. Gait slowed utilizing rolling walker with therapy support. Antalgic in nature. PSYCH: Alert, oriented x3, affect appears normal. Insight appears intact. - Constitutional Vitals: Vital Signs - 12hr 04/20/19 04/20/19 04/20/19 01:41 01:47 03:34 Temperature 98.1 F Pulse Rate 102 H Respiratory 17 17 16 Rate Blood Pressure 82/57 Blood Pressure [Right] O2 Sat by Pulse 94 Oximetry 04/20/19 04/20/19 04/20/19 05:22 07:00 07:15 Temperature 98.1 F 97.0 F L 97.0 F L Pulse Rate 101 H 101 H 101 H Respiratory 16 16 16 Rate Blood Pressure 96/65 Blood Pressure 93/57 96/65 [Right] O2 Sat by Pulse 95 98 95 Oximetry 04/20/19 08:31 Temperature Pulse Rate Respiratory Rate Blood Pressure Blood Pressure [Right] O2 Sat by Pulse 98 Oximetry - Allied health notes Allied health notes reviewed: nursing, PT, OT FIMS assessment as documented by PT/OT/ST: Grooming Patient cleans teeth/dentures: Yes Patient pettit/brushes hair: Yes Patient washes, rinses and Yes dries face: Patient washes, rinses and Yes dries hands: Patient performs (no make-up/ / (100%) shaving): Grooming FIM Score 5. Supervision ([place] applies toothpaste or opens containers.) Toileting Toileting Device Commode over Toilet Patient able to: Adjust clothes before,Clean self Patient able to perform: 2/3 (67%) Toileting FIM Score 3. Moderate Assistance (Patient = 50% or more. Some lifting.) Social interaction/Memory/Problem solving Social Interaction FIM Score 6. Mod. [place] (Mostly appropriate. May need meds. No supv.) Memory FIM Score 6. Modified [place](Mild difficulty remembering people/routines.) Problem Solving FIM Score 6. Mod. [place] (Mild difficulty or needs more time w/ complex.) Transfers Mode of Locomotion: Wheelchair Bed/Chair/Wheelchair Transfers 2. Maximal Assistance (Patient = 25% or more) FIM Score Toilet Transfers FIM Score 2. Maximal Assistance (Patient = 25% or more) Patient transferred to: Shower Shower Transfers FIM Score 2. Maximal Assistance (Patient = 25% or more) Locomotion- walk/wheelchair Ambulation Distance 64 Eating Eating FIM Score 7. Complete [place] (Cuts meat, opens containers, regular diet.) Dressing-Upper body Patient retrieves clothing No items: Upper Body Dressing FIM Score 5. Supv./Set-Up ([place] sets out clothes or applies pros./orth.) Dressing-lower body Patient retrieves clothing No items: Lower Body Dressing FIM Score 2. Maximal Assistance (Patient = 25% or more) - Labs CBC & Chem 7: 04/19/19 08:18 04/19/19 08:18 Labs: Laboratory Results - last 72 hr 04/17/19 04/17/19 04/17/19 11:42 11:42 11:42 WBC RBC Hgb Hct MCV MCH MCHC RDW Plt Count Sodium Potassium Chloride Carbon Dioxide Anion Gap BUN Creatinine Estimated GFR BUN/Creatinine Ratio Glucose Calcium Iron 50 TIBC 150 L Ferritin 90.4 Vitamin B12 423.7 Folate Phenytoin Phenobarbital 04/17/19 04/19/19 04/19/19 11:42 08:18 08:18 WBC 7.4 RBC 2.59 L Hgb 8.5 L Hct 24.6 L MCV 95 MCH 33 H MCHC 35 H RDW 14.6 Plt Count 183 Sodium 130 L Potassium 4.3 D Chloride 97.7 L Carbon Dioxide 21 L Anion Gap 16 BUN 6 L Creatinine 0.3 L Estimated GFR > 60 BUN/Creatinine Ratio 20 Glucose 123 H Calcium 7.9 L Iron TIBC Ferritin Vitamin B12 Folate 13.80 Phenytoin Phenobarbital 04/19/19 04/19/19 08:18 08:18 WBC RBC Hgb Hct MCV MCH MCHC RDW Plt Count Sodium Potassium Chloride Carbon Dioxide Anion Gap BUN Creatinine Estimated GFR BUN/Creatinine Ratio Glucose Calcium Iron TIBC Ferritin Vitamin B12 Folate Phenytoin 10.1 Phenobarbital 20.7 Assessment and Plan Right hip fracture: Status post IM nail on April [address] Yen. Patient remains partial weightbearing. Monitor for any signs of wound infection. Mobility as tolerated with progressive increasing. Maintain pain control and wean the patient over to oral pain control only. XR shows no acute changes Epilepsy: Continue medications, seizure precautions. Monitor for any signs of seizure. Recommended to patient that she follow-up with a neurologist as she has not seen one in quite some time and gets all medications through PCP. Phenytoin and phenobarbital levels checked on admission. Phenytoin 16.1 on 04/09/2019 and phenobarbital 22.7 on 04/09/2019. Continue to monitor Pain and swelling in the right calf: Duplex ordered to rule out DVT - NEG Iatrogenic SIADH: Previous notes reviewed from nephrology, will avoid excessive normal saline. Continue sodium chloride tablets. Monitor her electrolytes on a regular basis and replace as needed. Continue fluid restriction. Urinary tract infection: Pseudomonas aeruginosa diagnosed and cultured on the acute care side. Culture and sensitivity reviewed and bacteria is susceptible to Levaquin which she is on. Continue for the next several days. Hypothyroidism: Continue replacement monitor Constipation: Continue medications. Discussed with patient her history which includes constipation and diarrhea. KUB does show large right-sided stool burden. Adjust bowel medications and monitor for improvement. Anemia: Likely postsurgical. Short course of iron and vitamin C. Continue to monitor ADL dysfunction: OT will work on improving ability to perform ADLs (including assistive devices) to increase independence and decrease caregiver burden and improve functional transfers and mobility training. Difficulty walking: PT will work on gait training and proper use of assistive devices and advance as appropriate to use of stairs and outside ambulation on uneven surfaces. Unsteadiness on feet: PT will work on improving static and dynamic sitting and standing balance as well as proper use of assistive devices to decrease risk of falls. Abnormality of gait: PT will work to improve safety and efficiency of gait through neuromotor training and gait training along with instruction on proper use of assistive devices. Muscle weakness: PT & OT will work on strengthening exercises to improve functional strength including mixture of closed and open kinetic chain exercises. Debility: PT & OT will work on improving overall functional status to improve participation with ADLs, mobility and social involvement. Fatigue: PT & OT will work on improving endurance through aerobic exercises and therapeutic activity while monitoring patients tolerance for activity and vital signs as needed. DVT ppx: Lovenox Pain: Continue physical modalities in therapy and pain medications as needed to achieve functional pain control. Patient was not weaned off of IV pain medicines before being received in rehab. Have had a prolonged discussion with her and nursing so that we understand that she will be utilizing IV Dilaudid only for breakthrough pain and will be utilizing oral medications for the bulk of her normal pain control. Goal is to wean her off of IV Dilaudid over the next several days and to continue to wean her off of the oral medications as we go forward in hopes of returning her home with very little in the way of pain control. Sleep: Monitor and address as needed. Bowel: Monitor and address as needed. Appetite: Monitor and address as needed. Discharge planning: Pending therapy progress and care plan meeting. Will continue discussion with therapy team, SW, patient and family. Restrictions/ Precautions: Falls, fluid, deaf or severely decreased hearing WB status: FWB Functional Hx: ADLs: Independent Cognition: Independent Mobility: No AD Barriers to Discharge: Decreased mobility and ability to perform self care, balance deficits, weakness Estimated Length of Stay: 10-14 days Discharge Destination: Home with family
[2019-04-20] MEDS: ONDANSETRON 4 MG ODT TAB PO PRN (12:44)
[2019-04-21 07:29] LABS: Hematocrit 24.6 % (30.3-42.9); Hemoglobin 8.5 gm/dl (10.1-14.3); Mean Corpuscular HGB Conc 35 % (30-34); Mean Corpuscular Volume 95 fl (79-97); Platelet Count 166 K/mm3 (140-440); Red Blood Count 2.59 M/mm3 (3.65-5.03); Red Cell Distribution Width 15.3 % (13.2-15.2)
[2019-04-21] MEDS: PHENYTOIN 100 MG CAPSULE.ER PO SCH ×3 (07:38→22:11)
[2019-04-21] MEDS: LEVOTHYROXINE 75 MCG TAB PO SCH (07:38)
[2019-04-21 07:51] LABS: BUN/Creatinine Ratio 27; Blood Urea Nitrogen 8 mg/dL (7-17); Calcium 8.1 mg/dL (8.4-10.2); Hemolysis Index 3
[2019-04-21] MEDS: ENOXAPARIN 40 MG/0.4 ML INJ SUB-Q SCH (10:30)
[2019-04-21] MEDS: POTASSIUM CHLORIDE ER 20 MEQ TAB PO SCH (10:30)
[2019-04-21] MEDS: SODIUM CHLORIDE 1 GM TAB PO SCH ×2 (10:31→22:11)
[2019-04-21] MEDS: PANTOPRAZOLE 40 MG TAB PO SCH ×2 (10:31→21:59)
[2019-04-21] MEDS: FERROUS SULFATE 325 MG TAB PO SCH ×2 (10:32→21:59)
[2019-04-21] MEDS: CYCLOBENZAPRINE 10 MG TAB PO SCH ×3 (10:32→21:59)
[2019-04-21] MEDS: ASCORBIC ACID 500 MG TAB PO SCH ×2 (10:32→21:59)
[2019-04-21] MEDS: PHENobarbital 32.4 MG TAB PO SCH ×2 (10:34→21:59)
[2019-04-21] MEDS: oxyCODONE 5 MG TAB PO PRN ×2 (10:34→17:49)
[2019-04-21] MEDS: POLYETHYLENE GLYCOL 3350 17 GM POWDER PO SCH (11:55)
--- NOTE | 2019-04-21 14:40 | Progress Note ---
Subjective Date of service: 04/21/19 Principal diagnosis: Right hip fracture Interval history: 63-year-old female who fell attempting to get out of bed and developed right hip pain. Upon presentation to the ER she was found to have an apparent deformity of the right femur. X-ray confirmed a subtrochanteric displaced hip fracture. Orthopedics was consulted and the patient was scheduled for surgical repair. While in the early stages of her stay she did not receive her antiepileptics and did have a seizure. She has petit mal type seizures. Due to medication she also has chronic hyponatremia/SIADH. Surgery was delayed due to other emergent surgical interventions in the OR. Once she was taken back with Dr. Yen on 04/13 she had an uneventful placement of an intramedullary nail. Pain control is been primary issue for her and she has continued to utilize scheduled oral medications as well as IV Dilaudid. She has impaired hearing. After the patient was medically stabilized they were transferred for further rehabilitation. All available medical records have been reviewed. Plan of care was discussed with patient. Interval History: Patient is participating in therapy and making reasonable progress. Taking rest breaks as needed. -BM. Denies palpitations, dyspnea, cough, N/V, weakness. Right hip fracture: Continue to monitor for any signs of wound infection or breakdown. Healing well currently. Maintain partial weightbearing per surgeon until cleared for weightbearing as tolerated. Epilepsy: Continue medications and seizure precautions. Phenytoin and phenoba rbital levels were checked 04/20 and are relatively consistent with levels on admission however both are slightly lower. Monitor and adjust as needed. Iatrogenic SIADH: Sodium level improved on 04/21 at 133. Per nephrology note on acute care side, they recommended a 35 ounce fluid restriction along with continuing the salt tabs and not using a saline infusion. Will ensure that the patient is adhering to the fluid restriction. Urinary tract infection: Antibiotic completed. Monitor for recurrence. Hypothyroidism: Continue medications Constipation: Discussed with patient today, she will utilize suppository tonight. Discussed with nursing. Monitor Anemia: Likely due to acute blood loss. Short course of iron replacement and vitamin C. Pain: Seems better controlled today as she only had 1 dose of oral pain medications as of seeing her in the afternoon. She is taking the oral pain meds and discussed with her again the need to wean off of Dilaudid. All records, vitals, labs and medications were reviewed. No other issues per patient, nursing or therapy. Objective - Exam Narrative Exam: MUSCULOSKELETAL SPECIALTY EXAM CONSTITUTIONAL: Well developed, well nourished, appropriately groomed EENT: Decreased hearing but does read lips RESPIRATORY: Clear to auscultation bilaterally, no increased work of breathing CARDIOVASCULAR: Regular Rate/ Rhythm, slight swelling on the right lower extremity but no edema or tenderness in BUE or BLE. Pulses palpable in all extremities. All extremities warm. GI: + bowel sounds, soft, NTTP, slightly distended INTEGUMENTARY: Right lower extremity with surgical wound which is clean dry and intact, otherwise normal, no lesion, rash, masses or bruising noted in extremities. MUSCULOSKELETAL: Right lower extremity has appropriate tenderness to palpation otherwise BUE and BLE normal without defect, crepitus, subluxation, effusion, arthritic changes or TTP. BUE 4+/5, good ROM, with normal tone. LLE 4+/5 good ROM, with normal tone, RLE 3/5 with decreased range of motion due to postsurgical pain NEURO: CN 2-12 grossly intact. Sensation intact in all extremities. No tremor noted in 4 extremities. POSTURE and GAIT: Sitting posture good. Balance appears reasonable. Gait slowed utilizing rolling walker with therapy support. Antalgic in nature. PSYCH: Alert, oriented x3, affect appears normal. Insight appears intact. - Constitutional Vitals: Vital Signs - 12hr 04/21/19 04/21/19 07:44 07:45 Temperature 97.8 F Pulse Rate 99 H Respiratory 18 Rate Blood Pressure 96/66 O2 Sat by Pulse 100 Oximetry - Allied health notes Allied health notes reviewed: nursing, PT, OT FIMS assessment as documented by PT/OT/ST: Grooming Patient cleans teeth/dentures: Yes Patient pettit/brushes hair: Yes Patient washes, rinses and Yes dries face: Patient washes, rinses and Yes dries hands: Patient performs (no make-up/ 4/4 (100%) shaving): Grooming FIM Score 5. Supervision ([place] applies toothpaste or opens containers.) Toileting Toileting Device Commode over Toilet Patient able to: Adjust clothes before,Clean self Patient able to perform: 2/3 (67%) Toileting FIM Score 3. Moderate Assistance (Patient = 50% or more. Some lifting.) Social interaction/Memory/Problem solving Social Interaction FIM Score 6. Mod. [place] (Mostly appropriate. May need meds. No supv.) Memory FIM Score 6. Modified [place](Mild difficulty remembering people/routines.) Problem Solving FIM Score 5. [place] (Needs cueing <10% to solve routine problems.) Transfers Mode of Locomotion: Wheelchair Bed/Chair/Wheelchair Transfers 3. Moderate Assistance (Patient = 50% or more. FIM Score Some lifting.) Toilet Transfers FIM Score 3. Moderate Assistance (Patient = 50% or more. Some lifting.) Patient transferred to: Shower Shower Transfers FIM Score 2. Maximal Assistance (Patient = 25% or more) Locomotion- walk/wheelchair Ambulation Distance 64 Eating Eating FIM Score 5. Supervision/Set-Up (Needs help w/ containers, cutting meat, etc.) Dressing-Upper body Patient retrieves clothing No items: Upper Body Dressing FIM Score 5. Supv./Set-Up ([place] sets out clothes or applies pros./orth.) Dressing-lower body Patient retrieves clothing No items: Lower Body Dressing FIM Score 3. Moderate Assistance (Patient = 50% or more) - Labs CBC & Chem 7: 04/21/19 07:13 04/21/19 07:13 Labs: Laboratory Results - last 72 hr 04/19/19 04/19/19 04/19/19 08:18 08:18 08:18 WBC 7.4 RBC 2.59 L Hgb 8.5 L Hct 24.6 L MCV 95 MCH 33 H MCHC 35 H RDW 14.6 Plt Count 183 Sodium 130 L Potassium 4.3 D Chloride 97.7 L Carbon Dioxide 21 L Anion Gap 16 BUN 6 L Creatinine 0.3 L Estimated GFR > 60 BUN/Creatinine Ratio 20 Glucose 123 H POC Glucose Calcium 7.9 L Phenytoin Phenobarbital 20.7 04/19/19 04/21/19 04/21/19 08:18 07:13 07:13 WBC 7.2 RBC 2.59 L Hgb 8.5 L Hct 24.6 L MCV 95 MCH 33 H MCHC 35 H RDW 15.3 H Plt Count 166 Sodium 133 L Potassium 4.1 Chloride 97.7 L Carbon Dioxide 22 Anion Gap 17 BUN 8 Creatinine 0.3 L Estimated GFR > 60 BUN/Creatinine Ratio 27 Glucose 94 POC Glucose Calcium 8.1 L Phenytoin 10.1 Phenobarbital 04/21/19 04/21/19 07:56 11:58 WBC RBC Hgb Hct MCV MCH MCHC RDW Plt Count Sodium Potassium Chloride Carbon Dioxide Anion Gap BUN Creatinine Estimated GFR BUN/Creatinine Ratio Glucose POC Glucose 100 91 Calcium Phenytoin Phenobarbital Assessment and Plan Right hip fracture: Status post IM nail on April [address] Yen. Patient remains partial weightbearing. Monitor for any signs of wound infection. Mobility as tolerated with progressive increasing. Maintain pain control and wean the patient over to oral pain control only. XR shows no acute changes Epilepsy: Continue medications, seizure precautions. Monitor for any signs of seizure. Recommended to patient that she follow-up with a neurologist as she has not seen one in quite some time and gets all medications through PCP. Phenytoin and phenobarbital levels checked on admission. Phenytoin 16.1 on 04/09/2019 and phenobarbital 22.7 on 04/09/2019. Continue to monitor Iatrogenic SIADH: Previous notes reviewed from nephrology, will avoid excessive normal saline. Continue sodium chloride tablets. Monitor her electrolytes on a regular basis and replace as needed. Continue fluid restriction. Urinary tract infection: Pseudomonas aeruginosa diagnosed and cultured on the acute care side. Culture and sensitivity reviewed and bacteria is susceptible to Levaquin which she is on. Continue for the next several days. Hypothyroidism: Continue replacement monitor Constipation: Continue medications. Discussed with patient her history which includes constipation and diarrhea. KUB does show large right-sided stool burden. Adjust bowel medications and monitor for improvement. Anemia: Likely postsurgical. Short course of iron and vitamin C. Continue to monitor ADL dysfunction: OT will work on improving ability to perform ADLs (including assistive devices) to increase independence and decrease caregiver burden and improve functional transfers and mobility training. Difficulty walking: PT will work on gait training and proper use of assistive devices and advance as appropriate to use of stairs and outside ambulation on uneven surfaces. Unsteadiness on feet: PT will work on improving static and dynamic sitting and standing balance as well as proper use of assistive devices to decrease risk of falls. Abnormality of gait: PT will work to improve safety and efficiency of gait through neuromotor training and gait training along with instruction on proper use of assistive devices. Muscle weakness: PT & OT will work on strengthening exercises to improve functional strength including mixture of closed and open kinetic chain exercises. Debility: PT & OT will work on improving overall functional status to improve participation with ADLs, mobility and social involvement. Fatigue: PT & OT will work on improving endurance through aerobic exercises and therapeutic activity while monitoring patients tolerance for activity and vital signs as needed. Pain and swelling in the right calf: Duplex ordered to rule out DVT - NEG DVT ppx: Lovenox Pain: Continue physical modalities in therapy and pain medications as needed to achieve functional pain control. Patient was not weaned off of IV pain medicines before being received in rehab. Have had a prolonged discussion with her and nursing so that we understand that she will be utilizing IV Dilaudid only for breakthrough pain and will be utilizing oral medications for the bulk of her normal pain control. Goal is to wean her off of IV Dilaudid over the next several days and to continue to wean her off of the oral medications as we go forward in hopes of returning her home with very little in the way of pain control. Sleep: Monitor and address as needed. Bowel: Monitor and address as needed. Appetite: Monitor and address as needed. Discharge planning: Pending therapy progress and care plan meeting. Will continue discussion with therapy team, SW, patient and family. Restrictions/ Precautions: Falls, fluid, deaf or severely decreased hearing WB status: FWB Functional Hx: ADLs: Independent Cognition: Independent Mobility: No AD Barriers to Discharge: Decreased mobility and ability to perform self care, balance deficits, weakness Estimated Length of Stay: 10-14 days Discharge Destination: Home with family
[2019-04-21] MEDS: HYDROmorphone 1 MG/1 ML INJ IV PRN (21:59)
[2019-04-21] MEDS: ONDANSETRON 4 MG ODT TAB PO PRN (22:11)
[2019-04-22] MEDS: PHENYTOIN 100 MG CAPSULE.ER PO SCH ×3 (06:20→22:57)
[2019-04-22] MEDS: LEVOTHYROXINE 75 MCG TAB PO SCH (06:20)
[2019-04-22] MEDS: HYDROmorphone 1 MG/1 ML INJ IV PRN ×3 (06:21→18:00)
[2019-04-22] MEDS: ACETAMINOPHEN 325 MG TAB PO PRN (06:27)
[2019-04-22] MEDS: oxyCODONE 5 MG TAB PO PRN ×2 (11:42→22:57)
[2019-04-22] MEDS: FERROUS SULFATE 325 MG TAB PO SCH ×2 (11:43→22:57)
[2019-04-22] MEDS: PANTOPRAZOLE 40 MG TAB PO SCH ×2 (11:43→22:58)
[2019-04-22] MEDS: PHENobarbital 32.4 MG TAB PO SCH ×2 (11:43→22:56)
[2019-04-22] MEDS: ASCORBIC ACID 500 MG TAB PO SCH ×2 (11:43→22:57)
[2019-04-22] MEDS: CYCLOBENZAPRINE 10 MG TAB PO SCH ×3 (11:43→21:01)
[2019-04-22] MEDS: ENOXAPARIN 40 MG/0.4 ML INJ SUB-Q SCH (11:44)
[2019-04-22] MEDS: POLYETHYLENE GLYCOL 3350 17 GM POWDER PO SCH (11:45)
[2019-04-22] MEDS: SODIUM CHLORIDE 1 GM TAB PO SCH ×2 (11:54→22:57)
--- NOTE | 2019-04-22 13:22 | Progress Note ---
Subjective Date of service: 04/22/19 Principal diagnosis: Right hip fracture Interval history: 63-year-old female who fell attempting to get out of bed and developed right hip pain. Upon presentation to the ER she was found to have an apparent deformity of the right femur. X-ray confirmed a subtrochanteric displaced hip fracture. Orthopedics was consulted and the patient was scheduled for surgical repair. While in the early stages of her stay she did not receive her antiepileptics and did have a seizure. She has petit mal type seizures. Due to medication she also has chronic hyponatremia/SIADH. Surgery was delayed due to other emergent surgical interventions in the OR. Once she was taken back with Dr. Yen on 04/13 she had an uneventful placement of an intramedullary nail. Pain control is been primary issue for her and she has continued to utilize scheduled oral medications as well as IV Dilaudid. She has impaired hearing. After the patient was medically stabilized they were transferred for further rehabilitation. All available medical records have been reviewed. Plan of care was discussed with patient. Interval History: Patient is participating in therapy and making reasonable progress. Taking rest breaks as needed. -BM. Denies palpitations, dyspnea, cough, N/V, weakness. Right hip fracture: Continue to monitor for any signs of wound infection or breakdown. Healing well currently. Maintain partial weightbearing per surgeon until cleared for weightbearing as tolerated. Epilepsy: Continue medications and seizure precautions. Phenytoin and phenoba rbital levels were checked 04/20 and are relatively consistent with levels on admission however both are slightly lower. Monitor and adjust as needed. Iatrogenic SIADH: Sodium level improved on 04/21 at 133. Per nephrology note on acute care side, they recommended a 35 ounce fluid restriction along with continuing the salt tabs and not using a saline infusion. Will ensure that the patient is adhering to the fluid restriction. Hypothyroidism: Continue medications Constipation: Discussed with patient today, she did not suppository last night as she stated. Discussed with nursing. States that she is taking MiraLAX twice a day at home. Will change Senokot to scheduled as well as add lactulose. This is a chronic problem for the patient which is likely compounded by the fact that she has been taken increased amounts of opioids since being in the hospital. Monitor Anemia: Likely due to acute blood loss. Short course of iron replacement and vitamin C. Pain: Seems better controlled overall. She is taking the oral pain meds less frequently and discussed with her again the need to wean off of Dilaudid. Urinary tract infection: Antibiotic completed. Monitor for recurrence. All records, vitals, labs and medications were reviewed. No other issues per patient, nursing or therapy. Patient discussed during team conference. Seems to be working better with therapy now since we had a discussion about possible discharge to snf facility. She is able to ambulate and transfer without much assistance at this time but is still not safe to return home yet. With continued work and support she will be safe to return home by April 29 which is our anticipated discharge date. Discussed with the patient. Objective - Exam Narrative Exam: MUSCULOSKELETAL SPECIALTY EXAM CONSTITUTIONAL: Well developed, well nourished, appropriately groomed EENT: Decreased hearing but does read lips RESPIRATORY: Clear to auscultation bilaterally, no increased work of breathing CARDIOVASCULAR: Regular Rate/ Rhythm, slight swelling on the right lower extremity but no edema or tenderness in BUE or BLE. Pulses palpable in all extremities. All extremities warm. GI: + bowel sounds, soft, NTTP, slightly distended INTEGUMENTARY: Right lower extremity with surgical wound which is clean dry and intact, othe rwise normal, no lesion, rash, masses or bruising noted in extremities. MUSCULOSKELETAL: Right lower extremity has appropriate tenderness to palpation otherwise BUE and BLE normal without defect, crepitus, subluxation, effusion, arthritic changes or TTP. BUE 4+/5, good ROM, with normal tone. LLE 4+/5 good ROM, with normal tone, RLE 3/5 with decreased range of motion due to postsurgical pain NEURO: CN 2-12 grossly intact. Sensation intact in all extremities. No tremor noted in 4 extremities. POSTURE and GAIT: Sitting posture good. Balance appears reasonable. Gait slowed utilizing rolling walker with therapy support. Antalgic in nature. PSYCH: Alert, oriented x3, affect appears normal. Insight appears intact. - Constitutional Vitals: Vital Signs - 12hr 04/22/19 07:54 Temperature 98.0 F Pulse Rate 93 H Respiratory 18 Rate Blood Pressure 88/57 O2 Sat by Pulse 95 Oximetry - Allied health notes Allied health notes reviewed: nursing, PT, OT FIMS assessment as documented by PT/OT/ST: Grooming Patient cleans teeth/dentures: Yes Patient pettit/brushes hair: Yes Patient washes, rinses and Yes dries face: Patient washes, rinses and Yes dries hands: Patient performs (no make-up/ / (100%) shaving): Grooming FIM Score 5. Supervision ([place] applies toothpaste or opens containers.) Toileting Toileting Device Commode over Toilet Patient able to: Adjust clothes before,Clean self,Adjust clothes after Patient able to perform: 3/3 (100%) Toileting FIM Score 5. Supv./Set-Up (Needs stand-by, set-up, applying prosth/orth.) Social interaction/Memory/Problem solving Social Interaction FIM Score 5. Supervision (Needs supv. <10%. Needs encouragement to participate.) Memory FIM Score 6. Modified [place](Mild difficulty remembering people/routines.) Problem Solving FIM Score 4. Minimal Assistance (Solves routine problems 75-90%.) Transfers Mode of Locomotion: Wheelchair Bed/Chair/Wheelchair Transfers 3. Moderate Assistance (Patient = 50% or more. FIM Score Some lifting.) Toilet Transfers FIM Score 3. Moderate Assistance (Patient = 50% or more. Some lifting.) Patient transferred to: Shower Shower Transfers FIM Score 2. Maximal Assistance (Patient = 25% or more) Locomotion- walk/wheelchair Ambulation Distance 64 Eating Eating FIM Score 5. Supervision/Set-Up (Needs help w/ containers, cutting meat, etc.) Dressing-Upper body Patient retrieves clothing No items: Upper Body Dressing FIM Score 5. Supv./Set-Up ([place] sets out clothes or applies pros./orth.) Dressing-lower body Patient retrieves clothing No items: Lower Body Dressing FIM Score 3. Moderate Assistance (Patient = 50% or more) - Labs CBC & Chem 7: 04/23/19 06:50 04/23/19 06:50 Labs: Laboratory Results - last 72 hr 04/21/19 04/21/19 04/21/19 07:13 07:13 07:56 WBC 7.2 RBC 2.59 L Hgb 8.5 L Hct 24.6 L MCV 95 MCH 33 H MCHC 35 H RDW 15.3 H Plt Count 166 Sodium 133 L Potassium 4.1 Chloride 97.7 L Carbon Dioxide 22 Anion Gap 17 BUN 8 Creatinine 0.3 L Estimated GFR > 60 BUN/Creatinine Ratio 27 Glucose 94 POC Glucose 100 Calcium 8.1 L 04/21/19 11:58 WBC RBC Hgb Hct MCV MCH MCHC RDW Plt Count Sodium Potassium Chloride Carbon Dioxide Anion Gap BUN Creatinine Estimated GFR BUN/Creatinine Ratio Glucose POC Glucose 91 Calcium Assessment and Plan Right hip fracture: Status post IM nail on April [address] Yen. Patient remains partial weightbearing. Monitor for any signs of wound infection. Mobility as tolerated with progressive increasing. Maintain pain control and wean the patient over to oral pain control only. XR shows no acute changes Epilepsy: Continue medications, seizure precautions. Monitor for any signs of seizure. Recommended to patient that she follow-up with a neurologist as she has not seen one in quite some time and gets all medications through PCP. Phenytoin and phenobarbital levels checked on admission. Phenytoin 16.1 on 04/09/2019 and phenobarbital 22.7 on 04/09/2019. Continue to monitor Iatrogenic SIADH: Previous notes reviewed from nephrology, will avoid excessive normal saline. Continue sodium chloride tablets. Monitor her electrolytes on a regular basis and replace as needed. Continue fluid restriction. Hypothyroidism: Continue replacement monitor Constipation: Continue medications. Discussed with patient her history which includes constipation and diarrhea. KUB does show large right-sided stool burden. Adjust bowel medications and monitor for improvement. Anemia: Likely postsurgical. Short course of iron and vitamin C. Continue to monitor ADL dysfunction: OT will work on improving ability to perform ADLs (including assistive devices) to increase independence and decrease caregiver burden and improve functional transfers and mobility training. Difficulty walking: PT will work on gait training and proper use of assistive devices and advance as appropriate to use of stairs and outside ambulation on uneven surfaces. Unsteadiness on feet: PT will work on improving static and dynamic sitting and standing balance as well as proper use of assistive devices to decrease risk of falls. Abnormality of gait: PT will work to improve safety and efficiency of gait through neuromotor training and gait training along with instruction on proper use of assistive devices. Muscle weakness: PT & OT will work on strengthening exercises to improve functional strength including mixture of closed and open kinetic chain exercises. Debility: PT & OT will work on improving overall functional status to improve participation with ADLs, mobility and social involvement. Fatigue: PT & OT will work on improving endurance through aerobic exercises and therapeutic activity while monitoring patients tolerance for activity and vital signs as needed. Urinary tract infection: Pseudomonas aeruginosa diagnosed and cultured on the acute care side. Culture and sensitivity reviewed and bacteria is susceptible to Levaquin which she is on. Completed abx, monitor. Pain and swelling in the right calf: Duplex ordered to rule out DVT - NEG DVT ppx: Lovenox Pain: Continue physical modalities in therapy and pain medications as needed to achieve functional pain control. Patient was not weaned off of IV pain medi cines before being received in rehab. Have had a prolonged discussion with her and nursing so that we understand that she will be utilizing IV Dilaudid only for breakthrough pain and will be utilizing oral medications for the bulk of her normal pain control. Goal is to wean her off of IV Dilaudid over the next several days and to continue to wean her off of the oral medications as we go forward in hopes of returning her home with very little in the way of pain control. Sleep: Monitor and address as needed. Bowel: Monitor and address as needed. Appetite: Monitor and address as needed. Discharge planning: Pending therapy progress and care plan meeting. Will continue discussion with therapy team, SW, patient and family. Look to DC on 04/29 with HH. Restrictions/ Precautions: Falls, fluid, deaf or severely decreased hearing WB status: FWB Functional Hx: ADLs: Independent Cognition: Independent Mobility: No AD Barriers to Discharge: Decreased mobility and ability to perform self care, balance deficits, weakness Estimated Length of Stay: 10-14 days Discharge Destination: Home with family
[2019-04-22] MEDS: LACTULOSE 20 GM/30 ML ORAL LIQD PO SCH (18:03)
[2019-04-22] MEDS: ONDANSETRON 4 MG ODT TAB PO PRN (18:06)
[2019-04-22] MEDS: SENNOSIDES 8.6 MG TAB PO SCH (21:57)
[2019-04-22] MEDS: MELATONIN 5 MG TAB PO PRN (23:14)
[2019-04-23] MEDS: oxyCODONE 5 MG TAB PO PRN ×3 (05:39→18:50)
[2019-04-23] MEDS: LEVOTHYROXINE 75 MCG TAB PO SCH (05:47)
[2019-04-23] MEDS: PHENYTOIN 100 MG CAPSULE.ER PO SCH ×3 (05:47→22:47)
[2019-04-23 07:12] LABS: Hematocrit 22.9 % (30.3-42.9); Mean Corpuscular HGB Conc 35 % (30-34); Mean Corpuscular Volume 95 fl (79-97); Platelet Count 187 K/mm3 (140-440); Red Cell Distribution Width 15.5 % (13.2-15.2)
[2019-04-23 07:31] LABS: BUN/Creatinine Ratio 30; Blood Urea Nitrogen 9 mg/dL (7-17); Calcium 8.2 mg/dL (8.4-10.2); Hemolysis Index 5
[2019-04-23] MEDS: PANTOPRAZOLE 40 MG TAB PO SCH ×2 (09:31→22:47)
[2019-04-23] MEDS: CYCLOBENZAPRINE 10 MG TAB PO SCH ×3 (09:31→20:00)
[2019-04-23] MEDS: FERROUS SULFATE 325 MG TAB PO SCH ×2 (09:32→22:48)
[2019-04-23] MEDS: PHENobarbital 32.4 MG TAB PO SCH ×2 (09:34→22:47)
[2019-04-23] MEDS: LACTULOSE 20 GM/30 ML ORAL LIQD PO SCH (09:39)
[2019-04-23] MEDS: ENOXAPARIN 40 MG/0.4 ML INJ SUB-Q SCH (09:39)
[2019-04-23] MEDS: POLYETHYLENE GLYCOL 3350 17 GM POWDER PO SCH (09:39)
[2019-04-23] MEDS: SODIUM CHLORIDE 1 GM TAB PO SCH ×2 (09:41→22:46)
[2019-04-23] MEDS: ASCORBIC ACID 500 MG TAB PO SCH ×2 (09:43→22:47)
[2019-04-23] MEDS: SENNOSIDES 8.6 MG TAB PO SCH ×2 (09:43→20:00)
--- NOTE | 2019-04-23 10:20 | Progress Note ---
Subjective Date of service: 04/23/19 Principal diagnosis: Right hip fracture Interval history: 63-year-old female who fell attempting to get out of bed and developed right hip pain. Upon presentation to the ER she was found to have an apparent deformity of the right femur. X-ray confirmed a subtrochanteric displaced hip fracture. Orthopedics was consulted and the patient was scheduled for surgical repair. While in the early stages of her stay she did not receive her antiepileptics and did have a seizure. She has petit mal type seizures. Due to medication she also has chronic hyponatremia/SIADH. Surgery was delayed due to other emergent surgical interventions in the OR. Once she was taken back with Dr. Yen on 04/13 she had an uneventful placement of an intramedullary nail. Pain control is been primary issue for her and she has continued to utilize scheduled oral medications as well as IV Dilaudid. She has impaired hearing. After the patient was medically stabilized they were transferred for further rehabilitation. All available medical records have been reviewed. Plan of care was discussed with patient. Interval History: Patient is participating in therapy and making reasonable progress. Taking rest breaks as needed. -BM. Denies palpitations, dyspnea, cough, N/V, weakness. Right hip fracture: Continue to monitor for any signs of wound infection or breakdown. Healing well currently. Maintain partial weightbearing per surgeon until cleared for weightbearing as tolerated. Epilepsy: Continue medications and seizure precautions. Phenytoin and phenoba rbital levels were checked 04/20 and are relatively consistent with levels on admission however both are slightly lower. Monitor and adjust as needed. Iatrogenic SIADH: Sodium level stable at 133. Per nephrology note on acute care side, they recommended a 35 ounce fluid restriction along with continuing the salt tabs and not using a saline infusion. Will ensure that the patient is adhering to the fluid restriction. Hypothyroidism: Continue medications Constipation: Discussed with patient today, she did not suppository last night as she stated. Discussed with nursing. States that she is taking MiraLAX twice a day at home. Will change Senokot to scheduled as well as add lactulose. This is a chronic problem for the patient which is likely compounded by the fact that she has been taken increased amounts of opioids since being in the hospital. Monitor. Patient not taking medications and states that she is just in too much pain to have a bowel movement. Discussed with her that this may lead to further problems with an impaction. She is having flatus. We will continue to monitor and encourage her to take medication so that we can avoid further issues. Anemia: Likely due to acute blood loss. Short course of iron replacement and vitamin C. hemoglobin slightly lower today. Monitor Pain: Seems better controlled overall. She is taking the oral pain meds less frequently and discussed with her again the need to wean off of Dilaudid. Urinary tract infection: Antibiotic completed. Monitor for recurrence. All records, vitals, labs and medications were reviewed. No other issues per patient, nursing or therapy. Objective - Exam Narrative Exam: MUSCULOSKELETAL SPECIALTY EXAM CONSTITUTIONAL: Well developed, well nourished, appropriately groomed EENT: Decreased hearing but does read lips RESPIRATORY: Clear to auscultation bilaterally, no increased work of breathing CARDIOVASCULAR: Regular Rate/ Rhythm, slight swelling on the right lower extremity but no edema or tenderness in BUE or BLE. Pulses palpable in all extremities. All extremities warm. GI: + bowel sounds, soft, NTTP, slightly distended INTEGUMENTARY: Right lower extremity with surgical wound which is clean dry and intact, otherwise normal, no lesion, rash, masses or bruising noted in extremities. MUSCULOSKELETAL: Right lower extremity has appropriate tenderness to palpation otherwise BUE and BLE normal without defect, crepitus, subluxation, effusion, arthritic changes or TTP. BUE 4+/5, good ROM, with normal tone. LLE 4+/5 good ROM, with normal tone, RLE 3/5 with decreased range of motion due to postsurgical pain NEURO: CN 2-12 grossly intact. Sensation intact in all extremities. No tremor noted in 4 extremities. POSTURE and GAIT: Sitting posture good. Balance appears reasonable. Gait slowed utilizing rolling walker with therapy support. Antalgic in nature. PSYCH: Alert, oriented x3, affect appears normal. Insight appears intact. - Constitutional Vitals: Vital Signs - 12hr 04/23/19 04/23/19 07:13 07:15 Temperature 98.1 F Pulse Rate 94 H Respiratory 18 Rate Blood Pressure 99/64 O2 Sat by Pulse 93 Oximetry - Allied health notes Allied health notes reviewed: nursing, PT, OT FIMS assessment as documented by PT/OT/ST: Grooming Patient cleans teeth/dentures: Yes Patient pettit/brushes hair: Yes Patient washes, rinses and Yes dries face: Patient washes, rinses and Yes dries hands: Patient performs (no make-up/ 05/28 (100%) shaving): Grooming FIM Score 5. Supervision ([place] applies toothpaste or opens containers.) Toileting Toileting Device Commode over Toilet Patient able to: Adjust clothes before,Clean self,Adjust clothes after Patient able to perform: 3/3 (100%) Toileting FIM Score 5. Supv./Set-Up (Needs stand-by, set-up, applying prosth/orth.) Social interaction/Memory/Problem solving Social Interaction FIM Score 5. Supervision (Needs supv. <10%. Needs encouragement to participate.) Memory FIM Score 6. Modified [place](Mild difficulty remembering people/routines.) Problem Solving FIM Score 5. Supervision (Needs cueing <10% to solve routine problems.) Transfers Mode of Locomotion: Wheelchair Bed/Chair/Wheelchair Transfers 4. Minimal Assistance (Patient = 75% or more. FIM Score Needs touching.) Toilet Transfers FIM Score 3. Moderate Assistance (Patient = 50% or more. Some lifting.) Patient transferred to: Shower Shower Transfers FIM Score 2. Maximal Assistance (Patient = 25% or more) Locomotion- walk/wheelchair Ambulation Distance 64 Eating Eating FIM Score 7. Complete [place] (Cuts meat, opens containers, regular diet.) Dressing-Upper body Patient retrieves clothing No items: Upper Body Dressing FIM Score 5. Supv./Set-Up ([place] sets out clothes or applies pros./orth.) Dressing-lower body Patient retrieves clothing No items: Lower Body Dressing FIM Score 3. Moderate Assistance (Patient = 50% or more) - Labs CBC & Chem 7: 04/23/19 06:50 04/23/19 06:50 Labs: Laboratory Results - last 72 hr 04/21/19 04/21/19 04/21/19 07:13 07:13 07:56 WBC 7.2 RBC 2.59 L Hgb 8.5 L Hct 24.6 L MCV 95 MCH 33 H MCHC 35 H RDW 15.3 H Plt Count 166 Sodium 133 L Potassium 4.1 Chloride 97.7 L Carbon Dioxide 22 Anion Gap 17 BUN 8 Creatinine 0.3 L Estimated GFR > 60 BUN/Creatinine Ratio 27 Glucose 94 POC Glucose 100 Calcium 8.1 L 04/21/19 04/23/19 04/23/19 11:58 06:50 06:50 WBC 5.0 RBC 2.40 L Hgb 8.0 L Hct 22.9 L MCV 95 MCH 33 H MCHC 35 H RDW 15.5 H Plt Count 187 Sodium 133 L Potassium 3.9 Chloride 98.2 Carbon Dioxide 22 Anion Gap 17 BUN 9 Creatinine 0.3 L Estimated GFR > 60 BUN/Creatinine Ratio 30 Glucose 95 POC Glucose 91 Calcium 8.2 L Assessment and Plan Right hip fracture: Status post IM nail on April [address] Yen. Patient remains partial weightbearing. Monitor for any signs of wound infection. Mobility as tolerated with progressive increasing. Maintain pain control and wean the patient over to oral pain control only. XR shows no acute changes Epilepsy: Continue medications, seizure precautions. Monitor for any signs of seizure. Recommended to patient that she follow-up with a neurologist as she has not seen one in quite some time and gets all medications through PCP. Phenytoin and phenobarbital levels checked on admission. Phenytoin 16.1 on 04/09/2019 and phenobarbital 22.7 on 04/09/2019. Continue to monitor Iatrogenic SIADH: Previous notes reviewed from nephrology, will avoid excessive normal saline. Continue sodium chloride tablets. Monitor her electrolytes on a regular basis and replace as needed. Continue fluid restriction. Hypothyroidism: Continue replacement monitor Constipation: Continue medications. Discussed with patient her history which includes constipation and diarrhea. KUB does show large right-sided stool burden. Adjust bowel medications and monitor for improvement. Anemia: Likely postsurgical. Short course of iron and vitamin C. Continue to monitor ADL dysfunction: OT will work on improving ability to perform ADLs (including assistive devices) to increase independence and decrease caregiver burden and i mprove functional transfers and mobility training. Difficulty walking: PT will work on gait training and proper use of assistive devices and advance as appropriate to use of stairs and outside ambulation on uneven surfaces. Unsteadiness on feet: PT will work on improving static and dynamic sitting and standing balance as well as proper use of assistive devices to decrease risk of falls. Abnormality of gait: PT will work to improve safety and efficiency of gait through neuromotor training and gait training along with instruction on proper use of assistive devices. Muscle weakness: PT & OT will work on strengthening exercises to improve functional strength including mixture of closed and open kinetic chain exercises. Debility: PT & OT will work on improving overall functional status to improve participation with ADLs, mobility and social involvement. Fatigue: PT & OT will work on improving endurance through aerobic exercises and therapeutic activity while monitoring patients tolerance for activity and vital signs as needed. Urinary tract infection: Pseudomonas aeruginosa diagnosed and cultured on the acute care side. Culture and sensitivity reviewed and bacteria is susceptible to Levaquin which she is on. Completed abx, monitor. Pain and swelling in the right calf: Duplex ordered to rule out DVT - NEG DVT ppx: Lovenox Pain: Continue physical modalities in therapy and pain medications as needed to achieve functional pain control. Patient was not weaned off of IV pain medicines before being received in rehab. Have had a prolonged discussion with her and nursing so that we understand that she will be utilizing IV Dilaudid only for breakthrough pain and will be utilizing oral medications for the bulk of her normal pain control. Goal is to wean her off of IV Dilaudid over the next several days and to continue to wean her off of the oral medications as we go forward in hopes of returning her home with very little in the way of pain control. Sleep: Monitor and address as needed. Bowel: Monitor and address as needed. Appetite: Monitor and address as needed. Discharge planning: Pending therapy progress and care plan meeting. Will continue discussion with therapy team, SW, patient and family. Look to DC on 04/29 with HH. Restrictions/ Precautions: Falls, fluid, deaf or severely decreased hearing WB status: FWB Functional Hx: ADLs: Independent Cognition: Independent Mobility: No AD Barriers to Discharge: Decreased mobility and ability to perform self care, balance deficits, weakness Estimated Length of Stay: 10-14 days Discharge Destination: Home with family
[2019-04-24] MEDS: oxyCODONE 5 MG TAB PO PRN ×2 (03:19→21:41)
[2019-04-24] MEDS: PHENYTOIN 100 MG CAPSULE.ER PO SCH ×3 (05:49→21:41)
[2019-04-24] MEDS: LEVOTHYROXINE 75 MCG TAB PO SCH (05:49)
[2019-04-24] MEDS: FERROUS SULFATE 325 MG TAB PO SCH ×2 (11:43→21:40)
[2019-04-24] MEDS: SODIUM CHLORIDE 1 GM TAB PO SCH ×2 (11:43→21:40)
[2019-04-24] MEDS: SENNOSIDES 8.6 MG TAB PO SCH ×2 (11:44→21:46)
[2019-04-24] MEDS: PANTOPRAZOLE 40 MG TAB PO SCH ×2 (11:44→21:40)
[2019-04-24] MEDS: ENOXAPARIN 40 MG/0.4 ML INJ SUB-Q SCH (11:44)
[2019-04-24] MEDS: PHENobarbital 32.4 MG TAB PO SCH ×2 (11:44→21:40)
[2019-04-24] MEDS: CYCLOBENZAPRINE 10 MG TAB PO SCH ×3 (11:44→21:40)
[2019-04-24] MEDS: ASCORBIC ACID 500 MG TAB PO SCH ×2 (11:44→21:40)
[2019-04-24] MEDS: POLYETHYLENE GLYCOL 3350 17 GM POWDER PO SCH (11:45)
[2019-04-24] MEDS: LACTULOSE 20 GM/30 ML ORAL LIQD PO SCH (11:52)
[2019-04-24] MEDS: MELATONIN 5 MG TAB PO PRN (21:40)
[2019-04-25] MEDS: oxyCODONE 5 MG TAB PO PRN ×4 (03:09→22:09)
[2019-04-25] MEDS: LEVOTHYROXINE 75 MCG TAB PO SCH (05:26)
[2019-04-25] MEDS: PHENYTOIN 100 MG CAPSULE.ER PO SCH ×3 (05:26→22:04)
[2019-04-25] MEDS: LACTULOSE 20 GM/30 ML ORAL LIQD PO SCH (08:00)
[2019-04-25] MEDS: PANTOPRAZOLE 40 MG TAB PO SCH ×2 (08:00→22:05)
[2019-04-25] MEDS: SENNOSIDES 8.6 MG TAB PO SCH ×2 (08:00→22:19)
[2019-04-25] MEDS: ASCORBIC ACID 500 MG TAB PO SCH ×2 (08:00→22:05)
[2019-04-25] MEDS: SODIUM CHLORIDE 1 GM TAB PO SCH ×2 (08:00→22:04)
[2019-04-25] MEDS: PHENobarbital 32.4 MG TAB PO SCH ×2 (08:00→22:05)
[2019-04-25] MEDS: CYCLOBENZAPRINE 10 MG TAB PO SCH ×3 (08:00→22:05)
[2019-04-25] MEDS: POLYETHYLENE GLYCOL 3350 17 GM POWDER PO SCH (08:01)
[2019-04-25] MEDS: FERROUS SULFATE 325 MG TAB PO SCH ×2 (08:01→22:04)
[2019-04-25] MEDS: ENOXAPARIN 40 MG/0.4 ML INJ SUB-Q SCH (08:01)
[2019-04-25] MEDS: ACETAMINOPHEN 325 MG TAB PO PRN (10:16)
[2019-04-25] MEDS: MELATONIN 5 MG TAB PO PRN (22:09)
[2019-04-26] MEDS: oxyCODONE 5 MG TAB PO PRN ×3 (04:48→20:58)
[2019-04-26] MEDS: PHENYTOIN 100 MG CAPSULE.ER PO SCH ×3 (05:46→20:59)
[2019-04-26] MEDS: LEVOTHYROXINE 75 MCG TAB PO SCH (05:46)
[2019-04-26] MEDS: POLYETHYLENE GLYCOL 3350 17 GM POWDER PO SCH (09:58)
[2019-04-26] MEDS: FERROUS SULFATE 325 MG TAB PO SCH ×2 (09:59→20:59)
[2019-04-26] MEDS: SODIUM CHLORIDE 1 GM TAB PO SCH ×2 (09:59→21:00)
[2019-04-26] MEDS: PHENobarbital 32.4 MG TAB PO SCH ×2 (09:59→20:59)
[2019-04-26] MEDS: ENOXAPARIN 40 MG/0.4 ML INJ SUB-Q SCH (10:00)
[2019-04-26] MEDS: PANTOPRAZOLE 40 MG TAB PO SCH ×2 (10:00→20:59)
[2019-04-26] MEDS: LACTULOSE 20 GM/30 ML ORAL LIQD PO SCH (10:00)
[2019-04-26] MEDS: CYCLOBENZAPRINE 10 MG TAB PO SCH ×3 (10:00→20:59)
[2019-04-26] MEDS: ASCORBIC ACID 500 MG TAB PO SCH ×2 (10:01→20:59)
[2019-04-26] MEDS: SENNOSIDES 8.6 MG TAB PO SCH ×2 (10:11→20:59)
[2019-04-26] MEDS: ONDANSETRON 4 MG ODT TAB PO PRN (11:00)
--- NOTE | 2019-04-26 11:54 | Progress Note ---
Subjective Date of service: 04/26/19 Principal diagnosis: Right hip fracture Interval history: 63-year-old female who fell attempting to get out of bed and developed right hip pain. Upon presentation to the ER she was found to have an apparent deformity of the right femur. X-ray confirmed a subtrochanteric displaced hip fracture. Orthopedics was consulted and the patient was scheduled for surgical repair. While in the early stages of her stay she did not receive her antiepileptics and did have a seizure. She has petit mal type seizures. Due to medication she also has chronic hyponatremia/SIADH. Surgery was delayed due to other emergent surgical interventions in the OR. Once she was taken back with Dr. Yen on 04/13 she had an uneventful placement of an intramedullary nail. Pain control is been primary issue for her and she has continued to utilize scheduled oral medications as well as IV Dilaudid. She has impaired hearing. After the patient was medically stabilized they were transferred for further rehabilitation. All available medical records have been reviewed. Plan of care was discussed with patient. Interval History: Patient is participating in therapy and making reasonable progress. Taking rest breaks as needed. +BM. Denies palpitations, dyspnea, cough, N/V, weakness. Right hip fracture: Continue to monitor for any signs of wound infection or breakdown. Healing well currently. Maintain partial weightbearing per surgeon until cleared for weightbearing as tolerated (4-6wks) Epilepsy: Continue medications and seizure precautions. Phenytoin and phenobarbital levels were checked 04/20 and are relatively consistent with levels on admission however both are slightly lower. Monitor and adjust as needed. Iatrogenic SIADH: Sodium level stable at 133. Per nephrology note on acute care side, they recommended a 35 ounce fluid restriction along with continuing the salt tabs and not using a saline infusion. Will ensure that the patient is adhe ring to the fluid restriction. Hypothyroidism: Continue medications Constipation: Has had several BMs since taking lactulose. Continue to monitor. Anemia: Likely due to acute blood loss. Short course of iron replacement and vitamin C. Monitor Pain: Seems better controlled overall. She is taking the oral pain meds less frequently. Urinary tract infection: Antibiotic completed. Monitor for recurrence. Pt states she is having increased frequency and dysuria - recheck UA. All records, vitals, labs and medications were reviewed. No other issues per patient, nursing or therapy. Objective - Exam Narrative Exam: MUSCULOSKELETAL SPECIALTY EXAM CONSTITUTIONAL: Well developed, well nourished, appropriately groomed EENT: Decreased hearing but does read lips RESPIRATORY: Clear to auscultation bilaterally, no increased work of breathing CARDIOVASCULAR: Regular Rate/ Rhythm, slight swelling on the right lower extremity but no edema or tenderness in BUE or BLE. Pulses palpable in all extremities. All extremities warm. GI: + bowel sounds, soft, NTTP, slightly distended INTEGUMENTARY: Right lower extremity with surgical wound which is clean dry and intact (zip closure), otherwise normal, no lesion, rash, masses or bruising noted in extremities. MUSCULOSKELETAL: Right lower extremity has appropriate tenderness to palpation otherwise BUE and BLE normal without defect, crepitus, subluxation, effusion, arthritic changes or TTP. BUE 4+/5, good ROM, with normal tone. LLE 4+/5 good ROM, with normal tone, RLE 3/5 with decreased range of motion due to postsurgical pain NEURO: CN 2-12 grossly intact. Sensation intact in all extremities. No tremor noted in 4 extremities. POSTURE and GAIT: Sitting posture good. Balance appears reasonable. Gait slowed utilizing rolling walker with therapy support. Antalgic in nature. PSYCH: Alert, oriented x3, affect appears normal. Insight appears intact. - Constitutional Vitals: Vital Signs - 12hr 04/26/19 04/26/19 08:04 11:10 Temperature 97.8 F Pulse Rate 85 74 Respiratory 18 Rate Blood Pressure 102/67 Blood Pressure 128/82 [Right] O2 Sat by Pulse 94 Oximetry - Allied health notes Allied health notes reviewed: nursing, PT, OT FIMS assessment as documented by PT/OT/ST: Grooming Patient cleans teeth/dentures: Yes Patient pettit/brushes hair: Yes Patient washes, rinses and Yes dries face: Patient washes, rinses and Yes dries hands: Patient performs (no make-up/ /4 (100%) shaving): Grooming FIM Score 6. Modified [place] (Needs equipment/device . Extra time.) Toileting Toileting Device Commode over Toilet Patient able to: Adjust clothes before,Clean self,Adjust clothes after Patient able to perform: 3/3 (100%) Toileting FIM Score 5. Supv./Set-Up (Needs stand-by, set-up, applying prosth/orth.) Social interaction/Memory/Problem solving Social Interaction FIM Score 6. Mod. [place] (Mostly appropriate. May need meds. No supv.) Memory FIM Score 7. Complete [place] (Remembers people and routines.) Problem Solving FIM Score 6. Mod. [place] (Mild difficulty or needs more time w/ complex.) Transfers Mode of Locomotion: Wheelchair Bed/Chair/Wheelchair Transfers 5. Supervision (Needs supv. or set-up for FIM Score sliding board, foot rests.) Toilet Transfers FIM Score 3. Moderate Assistance (Patient = 50% or more. Some lifting.) Patient transferred to: Shower Shower Transfers FIM Score 2. Maximal Assistance (Patient = 25% or more) Locomotion- walk/wheelchair Ambulation Distance 64 Eating Eating FIM Score 7. Complete [place] (Cuts meat, opens containers, regular diet.) Dressing-Upper body Patient retrieves clothing No items: Upper Body Dressing FIM Score 5. Supv./Set-Up ([place] sets out clothes or applies pros./orth.) Dressing-lower body Patient retrieves clothing No items: Lower Body Dressing FIM Score 3. Moderate Assistance (Patient = 50% or more) - Labs CBC & Chem 7: 04/23/19 06:50 04/23/19 06:50 Assessment and Plan Right hip fracture: Status post IM nail on April [address] Yen. Patient remains partial weightbearing. Monitor for any signs of wound infection. Mobility as tolerated with progressive increasing. Maintain pain control . XR shows no acute changes Epilepsy: Continue medications, seizure precautions. Monitor for any signs of seizure. Recommended to patient that she follow-up with a neurologist as she has not seen one in quite some time and gets all medications through PCP. Phenytoin and phenobarbital levels checked on admission. Phenytoin 16.1 on 04/09/2019 and phenobarbital 22.7 on 04/09/2019. Continue to monitor Iatrogenic SIADH: Previous notes reviewed from nephrology, will avoid excessive normal saline. Continue sodium chloride tablets. Monitor her electrolytes on a regular basis and replace as needed. Continue fluid restriction. Hypothyroidism: Continue replacement monitor Constipation: Continue medications. Discussed with patient her history which includes constipation and diarrhea. KUB does show large right-sided stool burden. Adjust bowel medications and monitor for improvement. Anemia: Likely postsurgical. Short course of iron and vitamin C. Continue to monitor ADL dysfunction: OT will work on improving ability to perform ADLs (including assistive devices) to increase independence and decrease caregiver burden and improve functional transfers and mobility training. Difficulty walking: PT will work on gait training and proper use of assistive devices and advance as appropriate to use of stairs and outside ambulation on uneven surfaces. Unsteadiness on feet: PT will work on improving static and dynamic sitting and standing balance as well as proper use of assistive devices to decrease risk of falls. Abnormality of gait: PT will work to improve safety and efficiency of gait through neuromotor training and gait training along with instruction on proper use of assistive devices. Muscle weakness: PT & OT will work on strengthening exercises to improve functional strength including mixture of closed and open kinetic chain exercises. Debility: PT & OT will work on improving overall functional status to improve participation with ADLs, mobility and social involvement. Fatigue: PT & OT will work on improving endurance through aerobic exercises and therapeutic activity while monitoring patients tolerance for activity and vital signs as needed. Urinary tract infection: Pseudomonas aeruginosa diagnosed and cultured on the acute care side. Culture and sensitivity reviewed and bacteria is susceptible to Levaquin which she is on. Completed abx, monitor. Recheck due to symptoms Pain and swelling in the right calf: Duplex ordered to rule out DVT - NEG DVT ppx: Lovenox, will send home on oral medication Pain: Continue physical modalities in therapy and pain medications as needed to achieve functional pain control. Patient was not weaned off of IV pain medicines before being received in rehab. Have had a prolonged discussion with her and nursing so that we understand that she will be utilizing IV Dilaudid only for breakthrough pain and will be utilizing oral medications for the bulk of her normal pain control. Goal is to wean her off of IV Dilaudid over the nex t several days and to continue to wean her off of the oral medications as we go forward in hopes of returning her home with very little in the way of pain control. Sleep: Monitor and address as needed. Bowel: Monitor and address as needed. Appetite: Monitor and address as needed. Discharge planning: Pending therapy progress and care plan meeting. Will continue discussion with therapy team, SW, patient and family. Look to [place] on 04/29 with HH. Restrictions/ Precautions: Falls, fluid, deaf or severely decreased hearing WB status: FWB Functional Hx: ADLs: Independent Cognition: Independent Mobility: No AD Barriers to Discharge: Decreased mobility and ability to perform self care, balance deficits, weakness Estimated Length of Stay: 10-14 days Discharge Destination: Home with family DME: Patient has a mobility deficit that significantly impairs her ability to perform MRADLs in the home which can not be sufficiently resolved with the use of a properly fitted cane/walker. The use of a manual wheelchair will significantly improve her ability to independently perform MRADLs and she will use it on a regular basis in the home, she has not expressed an unwillingness to utilize the manual wheelchair in the home and she has sufficient upper body strength to self propel the wheelchair in the home. All of these criteria were tested and documented while the patient was on the acute rehab unit. Although she is able to ambulate with a RW, she will remain partial weightbearing for 4-6 weeks per the surgeon. As such, she is unable to stand and perform MRADLs safely. She qualifies and would benefit from a wheelchair for short term rental (2months) until she is able to safely stand and perform her MRADLs.
[2019-04-27] MEDS: oxyCODONE 5 MG TAB PO PRN ×4 (01:15→22:19)
[2019-04-27] MEDS: MELATONIN 5 MG TAB PO PRN ×2 (01:16→22:22)
[2019-04-27] MEDS: LEVOTHYROXINE 75 MCG TAB PO SCH (05:25)
[2019-04-27] MEDS: PHENYTOIN 100 MG CAPSULE.ER PO SCH ×3 (05:25→22:14)
[2019-04-27] MEDS: PANTOPRAZOLE 40 MG TAB PO SCH ×2 (07:41→22:14)
[2019-04-27] MEDS: FERROUS SULFATE 325 MG TAB PO SCH ×2 (07:41→22:14)
[2019-04-27] MEDS: POLYETHYLENE GLYCOL 3350 17 GM POWDER PO SCH (07:41)
[2019-04-27] MEDS: SODIUM CHLORIDE 1 GM TAB PO SCH ×2 (07:41→22:14)
[2019-04-27] MEDS: PHENobarbital 32.4 MG TAB PO SCH ×2 (07:41→22:14)
[2019-04-27] MEDS: CYCLOBENZAPRINE 10 MG TAB PO SCH ×3 (07:41→22:19)
[2019-04-27] MEDS: ASCORBIC ACID 500 MG TAB PO SCH ×2 (07:41→22:14)
[2019-04-27] MEDS: LACTULOSE 20 GM/30 ML ORAL LIQD PO SCH (07:41)
[2019-04-27] MEDS: ENOXAPARIN 40 MG/0.4 ML INJ SUB-Q SCH (07:41)
[2019-04-27] MEDS: SENNOSIDES 8.6 MG TAB PO SCH ×2 (07:43→22:18)
[2019-04-27 09:22] LABS: Bacteria,Urine 1+ /HPF (Negative); Bilirubin,Urine NEG (Negative); Blood,Urine NEG (Negative); Color,Urine Yellow (Yellow); Mucus,Urine FEW /HPF; Protein,Urine <15 mg/dL mg/dL (Negative); Urobilinogen,Urine < 2.0 mg/dL (<2.0)
--- NOTE | 2019-04-27 14:46 | Progress Note ---
Subjective Date of service: 04/27/19 Principal diagnosis: Right hip fracture Interval history: 63-year-old female who fell attempting to get out of bed and developed right hip pain. Upon presentation to the ER she was found to have an apparent deformity of the right femur. X-ray confirmed a subtrochanteric displaced hip fracture. Orthopedics was consulted and the patient was scheduled for surgical repair. While in the early stages of her stay she did not receive her antiepileptics and did have a seizure. She has petit mal type seizures. Due to medication she also has chronic hyponatremia/SIADH. Surgery was delayed due to other emergent surgical interventions in the OR. Once she was taken back with Dr. Yen on 04/13 she had an uneventful placement of an intramedullary nail. Pain control is been primary issue for her and she has continued to utilize scheduled oral medications as well as IV Dilaudid. She has impaired hearing. After the patient was medically stabilized they were transferred for further rehabilitation. All available medical records have been reviewed. Plan of care was discussed with patient. Interval History: Patient is participating in therapy and making reasonable progress. Taking rest breaks as needed. +BM. Denies palpitations, dyspnea, cough, N/V, weakness. Right hip fracture: Continue to monitor for any signs of wound infection or breakdown. Healing well currently. Maintain partial weightbearing per surgeon until cleared for weightbearing as tolerated (4-6wks) Epilepsy: Continue medications and seizure precautions. Phenytoin and phenobarbital levels were checked 04/20 and are relatively consistent with levels on admission however both are slightly lower. Monitor and adjust as needed. Iatrogenic SIADH: Sodium level stable at 133. Per nephrology note on acute care side, they recommended a 35 ounce fluid restriction along with continuing the salt tabs and not using a saline infusion. Will ensure that the patient is adhe ring to the fluid restriction. Urinary tract infection: UA appears consistent with urinary tract infection. Awaiting culture and sensitivities. We will go ahead and start IV antibiotics. Hypothyroidism: Continue medications Constipation: Has had several BMs since taking lactulose. Continue to monitor. Anemia: Likely due to acute blood loss. Short course of iron replacement and vitamin C. Monitor Pain: Seems better controlled overall. She is taking the oral pain meds less frequently. All records, vitals, labs and medications were reviewed. No other issues per patient, nursing or therapy. Objective - Exam Narrative Exam: MUSCULOSKELETAL SPECIALTY EXAM CONSTITUTIONAL: Well developed, well nourished, appropriately groomed EENT: Decreased hearing but does read lips RESPIRATORY: Clear to auscultation bilaterally, no increased work of breathing CARDIOVASCULAR: Regular Rate/ Rhythm, slight swelling on the right lower extremity but no edema or tenderness in BUE or BLE. Pulses palpable in all extremities. All extremities warm. GI: + bowel sounds, soft, NTTP, slightly distended INTEGUMENTARY: Right lower extremity with surgical wound which is clean dry and intact (zip closure), otherwise normal, no lesion, rash, masses or bruising noted in extremities. MUSCULOSKELETAL: Right lower extremity has appropriate tenderness to palpation otherwise BUE and BLE normal without defect, crepitus, subluxation, effusion, arthritic changes or TTP. BUE 4+/5, good ROM, with normal tone. LLE 4+/5 good ROM, with normal tone, RLE 3/5 with decreased range of motion due to postsurgical pain NEURO: CN 2-12 grossly intact. Sensation intact in all extremities. No tremor noted in 4 extremities. POSTURE and GAIT: Sitting posture good. Balance appears reasonable. Gait slowed utilizing rolling walker with therapy support. Antalgic in nature. PSYCH: Alert, oriented x3, affect appears normal. Insight appears intact. - Constitutional Vitals: Vital Signs - 12hr 04/27/19 04/27/19 04/27/19 05:24 07:56 08:21 Temperature 98.0 F Pulse Rate 82 Respiratory 18 18 18 Rate Blood Pressure 102/65 O2 Sat by Pulse 94 Oximetry - Allied health notes Allied health notes reviewed: nursing, PT, OT FIMS assessment as documented by PT/OT/ST: Grooming Patient cleans teeth/dentures: Yes Patient pettit/brushes hair: Yes Patient washes, rinses and Yes dries face: Patient washes, rinses and Yes dries hands: Patient performs (no make-up/ / (100%) shaving): Grooming FIM Score 6. Modified [place] (Needs equipment/device . Extra time.) Toileting Toileting Device Commode over Toilet Patient able to: Adjust clothes before,Clean self,Adjust clothes after Patient able to perform: 3/3 (100%) Toileting FIM Score 6. Modified [place] (Needs equip. or prosth ./orth.) Social interaction/Memory/Problem solving Social Interaction FIM Score 6. Mod. [place] (Mostly appropriate. May need meds. No supv.) Memory FIM Score 6. Modified [place](Mild difficulty remembering people/routines.) Problem Solving FIM Score 6. Mod. [place] (Mild difficulty or needs more time w/ complex.) Transfers Mode of Locomotion: Wheelchair Bed/Chair/Wheelchair Transfers 6. Modified [place] (Uses device, sliding FIM Score board, prosth./orth.) Toilet Transfers FIM Score 6. Modified [place] (Uses device, special seat or more time.) Patient transferred to: Shower Shower Transfers FIM Score 2. Maximal Assistance (Patient = 25% or more) Locomotion- walk/wheelchair Ambulation Distance 64 Eating Eating FIM Score 6. Modified [place] (Special consistency or uses device.) Dressing-Upper body Patient retrieves clothing Yes items: Upper Body Dressing FIM Score 6. Modified [place] (Needs equipment, velcro or pros./orth.) Dressing-lower body Patient retrieves clothing Yes items: Patient applies/removes LE No prosthesis or orthosis: Lower Body Dressing FIM Score 6. Modified [place] (Needs equipment, velcro or pros./orth.) - Labs CBC & Chem 7: 04/23/19 06:50 04/23/19 06:50 Labs: Laboratory Results - last 72 hr 04/27/19 08:50 Urine Color Yellow Urine Turbidity Clear Urine pH 7.0 Ur Specific [place] 1.006 Urine Protein <15 mg/dl Urine Glucose (UA) Neg Urine Ketones Neg Urine Blood Neg Urine Nitrite Neg Urine Bilirubin Neg Urine Urobilinogen < 2.0 Ur Leukocyte Esterase Lg Urine WBC (Auto) 25.0 H Urine RBC (Auto) 6.0 U Epithel Cells (Auto) 3.0 Urine Bacteria (Auto) 1+ Urine Mucus Few Assessment and Plan Right hip fracture: Status post IM nail on April [address] Yen. Patient remains partial weightbearing. Monitor for any signs of wound infection. Mobility as tolerated with progressive increasing. Maintain pain control . XR shows no acute changes. Will remain partial weightbearing for 4 to 6 weeks until advanced to weightbearing as tolerated by Dr. Yen at follow-up. Epilepsy: Continue medications, seizure precautions. Monitor for any signs of seizure. Recommended to patient that she follow-up with a neurologist as she has not seen one in quite some time and gets all medications through PCP. Phenytoin and phenobarbital levels checked on admission. Phenytoin 16.1 on 04/09/2019 and phenobarbital 22.7 on 04/09/2019. Continue to monitor Iatrogenic SIADH: Previous notes reviewed from nephrology, will avoid excessive normal saline. Continue sodium chloride tablets. Monitor her electrolytes on a regular basis and replace as needed. Continue fluid restriction. Hypothyroidism: Continue replacement monitor Constipation: Continue medications. Discussed with patient her history which includes constipation and diarrhea. Adjust bowel medications and monitor for improvement. Anemia: Likely postsurgical. Short course of iron and vitamin C. Continue to monitor ADL dysfunction: OT will work on improving ability to perform ADLs (including assistive devices) to increase independence and decrease caregiver burden and improve functional transfers and mobility training. Difficulty walking: PT will work on gait training and proper use of assistive devices and advance as appropriate to use of stairs and outside ambulation on uneven surfaces. Unsteadiness on feet: PT will work on improving static and dynamic sitting and standing balance as well as proper use of assistive devices to decrease risk of falls. Abnormality of gait: PT will work to improve safety and efficiency of gait through neuromotor training and gait training along with instruction on proper use of assistive devices. Muscle weakness: PT & OT will work on strengthening exercises to improve functional strength including mixture of closed and open kinetic chain exercises. Debility: PT & OT will work on improving overall functional status to improve participation with ADLs, mobility and social involvement. Fatigue: PT & OT will work on improving endurance through aerobic exercises and therapeutic activity while monitoring patients tolerance for activity and vital signs as needed. Urinary tract infection: Recurrent UTI after she was treated for Pseudomonas on the acute side. Will restart IV antibiotics and await culture and sensitivity results. Pain and swelling in the right calf: Duplex ordered to rule out DVT - NEG DVT ppx: Lovenox, will send home on oral medication Pain: Continue physical modalities in therapy and pain medications as needed to achieve functional pain control. Patient was not weaned off of IV pain medicines before being received in rehab. Have had a prolonged discussion with her and nursing so that we understand that she will be utilizing IV Dilaudid only for breakthrough pain and will be utilizing oral medications for the bulk of her normal pain control. Goal is to wean her off of IV Dilaudid over the next several days and to continue to wean her off of the oral medications as we go forward in hopes of returning her home with very little in the way of pain control. Sleep: Monitor and address as needed. Bowel: Monitor and address as needed. Appetite: Monitor and address as needed. Discharge planning: Pending therapy progress and care plan meeting. Will continue discussion with therapy team, SW, patient and family. Look to [place] on 04/29 with HH. Restrictions/ Precautions: Falls, fluid, deaf or severely decreased hearing WB status: FWB Functional Hx: ADLs: Independent Cognition: Independent Mobility: No AD Barriers to Discharge: Decreased mobility and ability to perform self care, balance deficits, weakness Estimated Length of Stay: 10-14 days Discharge Destination: Home with family DME: Patient has a mobility deficit that significantly impairs her ability to perform MRADLs in the home which can not be sufficiently resolved with the use of a properly fitted cane/walker. The use of a manual wheelchair will significantly improve her ability to independently perform MRADLs and she will use it on a regular basis in the home, she has not expressed an unwillingness to utilize the manual wheelchair in the home and she has sufficient upper body strength to self propel the wheelchair in the home. All of these criteria were tested and documented while the patient was on the acute rehab unit. Although she is able to ambulate with a RW, she will remain partial weightbearing for 4-6 weeks per the surgeon. As such, she is unable to stand and perform MRADLs safely. She qualifies and would benefit from a wheelchair for short term rental (2months) until she is able to safely stand and perform her MRADLs.
[2019-04-28] MEDS: PHENYTOIN 100 MG CAPSULE.ER PO SCH ×3 (05:57→21:25)
[2019-04-28] MEDS: LEVOTHYROXINE 75 MCG TAB PO SCH (05:57)
[2019-04-28] MEDS: oxyCODONE 5 MG TAB PO PRN ×2 (05:59→18:59)
[2019-04-28 07:05] LABS: Hematocrit 26.4 % (30.3-42.9); Hemoglobin 9.1 gm/dl (10.1-14.3); Mean Corpuscular HGB Conc 34 % (30-34); Mean Corpuscular Volume 97 fl (79-97); Platelet Count 303 K/mm3 (140-440); Red Blood Count 2.73 M/mm3 (3.65-5.03); Red Cell Distribution Width 16.8 % (13.2-15.2)
[2019-04-28 07:25] LABS: BUN/Creatinine Ratio 20; Blood Urea Nitrogen 8 mg/dL (7-17); Calcium 8.5 mg/dL (8.4-10.2); Hemolysis Index 2
[2019-04-28] MEDS: CYCLOBENZAPRINE 10 MG TAB PO SCH ×3 (08:24→21:25)
[2019-04-28] MEDS: ENOXAPARIN 40 MG/0.4 ML INJ SUB-Q SCH (11:00)
[2019-04-28] MEDS: ASCORBIC ACID 500 MG TAB PO SCH ×2 (11:03→21:24)
[2019-04-28] MEDS: LACTULOSE 20 GM/30 ML ORAL LIQD PO SCH (11:16)
[2019-04-28] MEDS: PANTOPRAZOLE 40 MG TAB PO SCH ×2 (11:17→21:24)
[2019-04-28] MEDS: PHENobarbital 32.4 MG TAB PO SCH ×2 (11:18→21:27)
[2019-04-28] MEDS: POLYETHYLENE GLYCOL 3350 17 GM POWDER PO SCH (11:19)
[2019-04-28] MEDS: FERROUS SULFATE 325 MG TAB PO SCH ×2 (11:21→21:25)
[2019-04-28] MEDS: SENNOSIDES 8.6 MG TAB PO SCH ×2 (11:21→21:25)
[2019-04-28] MEDS: SODIUM CHLORIDE 1 GM TAB PO SCH ×2 (11:22→21:25)
--- NOTE | 2019-04-28 15:29 | Progress Note ---
Subjective Date of service: 04/28/19 Principal diagnosis: Right hip fracture Interval history: 63-year-old female who fell attempting to get out of bed and developed right hip pain. Upon presentation to the ER she was found to have an apparent deformity of the right femur. X-ray confirmed a subtrochanteric displaced hip fracture. Orthopedics was consulted and the patient was scheduled for surgical repair. While in the early stages of her stay she did not receive her antiepileptics and did have a seizure. She has petit mal type seizures. Due to medication she also has chronic hyponatremia/SIADH. Surgery was delayed due to other emergent surgical interventions in the OR. Once she was taken back with Dr. Yen on 04/13 she had an uneventful placement of an intramedullary nail. Pain control is been primary issue for her and she has continued to utilize scheduled oral medications as well as IV Dilaudid. She has impaired hearing. After the patient was medically stabilized they were transferred for further rehabilitation. All available medical records have been reviewed. Plan of care was discussed with patient. Interval History: Patient is participating in therapy and making reasonable progress. Taking rest breaks as needed. +BM. Denies palpitations, dyspnea, cough, N/V, weakness. Right hip fracture: Continue to monitor for any signs of wound infection or breakdown. Healing well currently. Maintain partial weightbearing per surgeon until cleared for weightbearing as tolerated (4-6wks) Epilepsy: Continue medications and seizure precautions. Phenytoin and phenobarbital levels were checked 04/20 and are relatively consistent with levels on admission however both are slightly lower. Monitor and adjust as needed. Iatrogenic SIADH: Sodium level stable at 135. Per nephrology note on acute care side, they recommended a 35 ounce fluid restriction along with continuing the salt tabs and not using a saline infusion. Will ensure that the patient is adhe ring to the fluid restriction. Urinary tract infection: UA appears consistent with urinary tract infection. Awaiting culture and sensitivities. We will go ahead and start IV antibiotics. Hypothyroidism: Continue medications Constipation: Has had several BMs since taking lactulose. Continue to monitor. Anemia: Likely due to acute blood loss. Short course of iron replacement and vitamin C. Improved to 9.1. Monitor Pain: Seems better controlled overall. She is taking the oral pain meds less frequently, typically 1-3 times per day. All records, vitals, labs and medications were reviewed. No other issues per patient, nursing or therapy. Objective - Exam Narrative Exam: MUSCULOSKELETAL SPECIALTY EXAM CONSTITUTIONAL: Well developed, well nourished, appropriately groomed EENT: Decreased hearing but does read lips RESPIRATORY: Clear to auscultation bilaterally, no increased work of breathing CARDIOVASCULAR: Regular Rate/ Rhythm, slight swelling on the right lower extremity but no edema or tenderness in BUE or BLE. Pulses palpable in all extremities. All extremities warm. GI: + bowel sounds, soft, NTTP, slightly distended INTEGUMENTARY: Right lower extremity with surgical wound which is clean dry and intact (zip closure), otherwise normal, no lesion, rash, masses or bruising noted in ex tremities. MUSCULOSKELETAL: Right lower extremity has appropriate tenderness to palpation otherwise BUE and BLE normal without defect, crepitus, subluxation, effusion, arthritic changes or TTP. BUE 4+/5, good ROM, with normal tone. LLE 4+/5 good ROM, with normal tone, RLE 3/5 with decreased range of motion due to postsurgical pain NEURO: CN 2-12 grossly intact. Sensation intact in all extremities. No tremor noted in 4 extremities. POSTURE and GAIT: Sitting posture good. Balance appears reasonable. Gait slowed utilizing rolling walker with therapy support. Antalgic in nature. PSYCH: Alert, oriented x3, affect appears normal. Insight appears intact. - Constitutional Vitals: Vital Signs - 12hr 04/28/19 07:40 Temperature 97.7 F Pulse Rate 83 Respiratory 18 Rate Blood Pressure 101/66 O2 Sat by Pulse 94 Oximetry - Allied health notes Allied health notes reviewed: nursing, PT, OT FIMS assessment as documented by PT/OT/ST: Grooming Patient cleans teeth/dentures: Yes Patient pettit/brushes hair: Yes Patient washes, rinses and Yes dries face: Patient washes, rinses and Yes dries hands: Patient performs (no make-up/ 4/4 (100%) shaving): Grooming FIM Score 6. Modified [place] (Needs equipment/device . Extra time.) Toileting Toileting Device Commode over Toilet Patient able to: Adjust clothes before,Clean self,Adjust clothes after Patient able to perform: 3/3 (100%) Toileting FIM Score 6. Modified [place] (Needs equip. or prosth ./orth.) Social interaction/Memory/Problem solving Social Interaction FIM Score 6. Mod. [place] (Mostly appropriate. May need meds. No supv.) Memory FIM Score 7. Complete [place] (Remembers people and routines.) Problem Solving FIM Score 6. Mod. [place] (Mild difficulty or needs more time w/ complex.) Transfers Mode of Locomotion: Wheelchair Bed/Chair/Wheelchair Transfers 6. Modified [place] (Uses device, sliding FIM Score board, prosth./orth.) Toilet Transfers FIM Score 6. Modified [place] (Uses device, special seat or more time.) Patient transferred to: Shower Shower Transfers FIM Score 2. Maximal Assistance (Patient = 25% or more) Locomotion- walk/wheelchair Ambulation Distance 64 Eating Eating FIM Score 7. Complete [place] (Cuts meat, opens containers, regular diet.) Dressing-Upper body Patient retrieves clothing Yes items: Upper Body Dressing FIM Score 6. Modified [place] (Needs equipment, velcro or pros./orth.) Dressing-lower body Patient retrieves clothing Yes items: Patient applies/removes LE No prosthesis or orthosis: Lower Body Dressing FIM Score 6. Modified [place] (Needs equipment, velcro or pros./orth.) - Labs CBC & Chem 7: 04/28/19 06:23 04/28/19 06:23 Labs: Laboratory Results - last 72 hr 04/27/19 04/28/19 04/28/19 08:50 06:23 06:23 WBC 4.2 L RBC 2.73 L Hgb 9.1 L Hct 26.4 L MCV 97 MCH 33 H MCHC 34 RDW 16.8 H Plt Count 303 Sodium 135 L Potassium 4.1 Chloride 99.7 Carbon Dioxide 21 L Anion Gap 18 BUN 8 Creatinine 0.4 L Estimated GFR > 60 BUN/Creatinine Ratio 20 Glucose 95 Calcium 8.5 Urine Color Yellow Urine Turbidity Clear Urine pH 7.0 Ur Specific [place] 1.006 Urine Protein <15 mg/dl Urine Glucose (UA) Neg Urine Ketones Neg Urine Blood Neg Urine Nitrite Neg Urine Bilirubin Neg Urine Urobilinogen < 2.0 Ur Leukocyte Esterase Lg Urine WBC (Auto) 25.0 H Urine RBC (Auto) 6.0 U Epithel Cells (Auto) 3.0 Urine Bacteria (Auto) 1+ Urine Mucus Few Assessment and Plan Right hip fracture: Status post IM nail on April [address] Yen. Patient remains partial weightbearing. Monitor for any signs of wound infection. Mobility as tolerated with progressive increasing. Maintain pain control . XR shows no acute changes. Will remain partial weightbearing for 4 to 6 weeks until advanced to weightbearing as tolerated by Dr. Yen at follow-up. Epilepsy: Continue medications, seizure precautions. Monitor for any signs of seizure. Recommended to patient that she follow-up with a neurologist as she has not seen one in quite some time and gets all medications through PCP. Phenytoin and phenobarbital levels checked on admission. Phenytoin 16.1 on 04/09/2019 and phenobarbital 22.7 on 04/09/2019. Continue to monitor Iatrogenic SIADH: Previous notes reviewed from nephrology, will avoid excessive normal saline. Continue sodium chloride tablets. Monitor her electrolytes on a regular basis and replace as needed. Continue fluid restriction. Hypothyroidism: Continue replacement monitor Constipation: Continue medications. Discussed with patient her history which includes constipation and diarrhea. Adjust bowel medications and monitor for improvement. Anemia: Likely postsurgical. Short course of iron and vitamin C. Continue to monitor ADL dysfunction: OT will work on improving ability to perform ADLs (including a ssistive devices) to increase independence and decrease caregiver burden and improve functional transfers and mobility training. Difficulty walking: PT will work on gait training and proper use of assistive devices and advance as appropriate to use of stairs and outside ambulation on uneven surfaces. Unsteadiness on feet: PT will work on improving static and dynamic sitting and standing balance as well as proper use of assistive devices to decrease risk of falls. Abnormality of gait: PT will work to improve safety and efficiency of gait through neuromotor training and gait training along with instruction on proper use of assistive devices. Muscle weakness: PT & OT will work on strengthening exercises to improve functional strength including mixture of closed and open kinetic chain exer cises. Debility: PT & OT will work on improving overall functional status to improve participation with ADLs, mobility and social involvement. Fatigue: PT & OT will work on improving endurance through aerobic exercises and therapeutic activity while monitoring patients tolerance for activity and vital signs as needed. Urinary tract infection: Recurrent UTI after she was treated for Pseudomonas on the acute side. Will restart IV antibiotics and await culture and sensitivity results. Pain and swelling in the right calf: Duplex ordered to rule out DVT - NEG DVT ppx: Lovenox, will send home on oral medication Pain: Continue physical modalities in therapy and pain medications as needed to achieve functional pain control. She has weaned off of IV Dilaudid and will continue to wean her off of the oral medications as we go forward in hopes of returning her home with very little in the way of pain control. Sleep: Monitor and address as needed. Bowel: Monitor and address as needed. Appetite: Monitor and address as needed. Discharge planning: Pending therapy progress and care plan meeting. Will continue discussion with therapy team, SW, patient and family. Look to [place] on 04/29 with HH. Restrictions/ Precautions: Falls, fluid, deaf or severely decreased hearing WB status: FWB Functional Hx: ADLs: Independent Cognition: Independent Mobility: No AD Barriers to Discharge: Decreased mobility and ability to perform self care, balance deficits, weakness Estimated Length of Stay: 10-14 days Discharge Destination: Home with family DME: Patient has a mobility deficit that significantly impairs her ability to perform MRADLs in the home which can not be sufficiently resolved with the use of a properly fitted cane/walker. The use of a manual wheelchair will significantly improve her ability to independently perform MRADLs and she will use it on a regular basis in the home, she has not expressed an unwillingness to utilize the manual wheelchair in the home and she has sufficient upper body strength to self propel the wheelchair in the home. All of these criteria were tested and documented while the patient was on the acute rehab unit. Although she is able to ambulate with a RW, she will remain partial weightbearing for 4-6 weeks per the surgeon. As such, she is unable to stand and perform MRADLs safely. She qualifies and would benefit from a wheelchair for short term rental (2months) until she is able to safely stand and perform her MRADLs.
[2019-04-28] MEDS: MELATONIN 5 MG TAB PO PRN (23:08)
[2019-04-29] MEDS: oxyCODONE 5 MG TAB PO PRN ×3 (05:56→22:24)
[2019-04-29] MEDS: LEVOTHYROXINE 75 MCG TAB PO SCH (05:57)
[2019-04-29] MEDS: PHENYTOIN 100 MG CAPSULE.ER PO SCH ×3 (05:57→22:26)
[2019-04-29] MEDS: PHENobarbital 32.4 MG TAB PO SCH ×2 (09:22→22:25)
[2019-04-29] MEDS: SODIUM CHLORIDE 1 GM TAB PO SCH ×2 (09:22→22:29)
[2019-04-29] MEDS: PANTOPRAZOLE 40 MG TAB PO SCH ×2 (09:22→22:26)
[2019-04-29] MEDS: ASCORBIC ACID 500 MG TAB PO SCH ×2 (09:22→22:25)
[2019-04-29] MEDS: ENOXAPARIN 40 MG/0.4 ML INJ SUB-Q SCH (09:22)
[2019-04-29] MEDS: CYCLOBENZAPRINE 10 MG TAB PO SCH ×2 (09:23→14:58)
[2019-04-29] MEDS: FERROUS SULFATE 325 MG TAB PO SCH ×2 (09:23→22:24)
[2019-04-29] MEDS: POLYETHYLENE GLYCOL 3350 17 GM POWDER PO SCH (09:26)
[2019-04-29] MEDS: SENNOSIDES 8.6 MG TAB PO SCH ×2 (11:18→22:40)
--- NOTE | 2019-04-29 16:13 | Progress Note ---
Subjective Date of service: 04/29/19 Principal diagnosis: Right hip fracture Interval history: 63-year-old female who fell attempting to get out of bed and developed right hip pain. Upon presentation to the ER she was found to have an apparent deformity of the right femur. X-ray confirmed a subtrochanteric displaced hip fracture. Orthopedics was consulted and the patient was scheduled for surgical repair. While in the early stages of her stay she did not receive her antiepileptics and did have a seizure. She has petit mal type seizures. Due to medication she also has chronic hyponatremia/SIADH. Surgery was delayed due to other emergent surgical interventions in the OR. Once she was taken back with Dr. Yen on 04/13 she had an uneventful placement of an intramedullary nail. Pain control is been primary issue for her and she has continued to utilize scheduled oral medications as well as IV Dilaudid. She has impaired hearing. After the patient was medically stabilized they were transferred for further rehabilitation. All available medical records have been reviewed. Plan of care was discussed with patient. Interval History: Patient is participating in therapy and making reasonable progress. Taking rest breaks as needed. +BM. Denies palpitations, dyspnea, cough, N/V, weakness. Right hip fracture: Continue to monitor for any signs of wound infection or rachel akdown. Healing well currently. Maintain partial weightbearing per surgeon until cleared for weightbearing as tolerated (4-6wks) Epilepsy: Continue medications and seizure precautions. Phenytoin and phenobarbital levels were checked 04/20 and are relatively consistent with levels on admission however both are slightly lower. Monitor and adjust as needed. Iatrogenic SIADH: Sodium level stable at 135. Per nephrology note on acute care side, they recommended a 35 ounce fluid restriction along with continuing the salt tabs and not using a saline infusion. Will ensure that the patient is ad charley to the fluid restriction. Urinary tract infection: UA appears consistent with urinary tract infection. Culture came back contaminated with normal skin brayan. Intermittent cath for second sample for culture, awaiting culture and sensitivities. Continue IV antibiotics and transition to oral at discharge. Hypothyroidism: Continue medications Constipation: Has had several BMs since taking lactulose. Continue to monitor. Anemia: Likely due to acute blood loss. Short course of iron replacement and vitamin C. Improved to 9.1. Monitor Pain: Seems better controlled overall. She is taking the oral pain meds less frequently, typically 1-3 times per day. Patient discussed in team conference. Making good progress. Abiding by weight bearing restrictions of partial. Able to ambulate household distances with a rolling walker however due to the fact that she is unable to stand without any support of a rolling walker and utilize her hands for MR ADLs she will need short-term use of a wheelchair. This would likely only be for 2 months at which point she will revert to rolling walker when she is safely cleared by her orthopedic surgeon to weight-bear as tolerated which will improve her ability to do MR ADLs while standing and without the use of a wheelchair. Will discharge tomorrow. All records, vitals, labs and medications were reviewed. No other issues per patient, nursing or therapy. Objective - Exam Narrative Exam: MUSCULOSKELETAL SPECIALTY EXAM CONSTITUTIONAL: Well developed, well nourished, appropriately groomed EENT: Decreased hearing but does read lips RESPIRATORY: Clear to auscultation bilaterally, no increased work of breathing CARDIOVASCULAR: Regular Rate/ Rhythm, slight swelling on the right lower extremity but no edema or tenderness in BUE or BLE. Pulses palpable in all extremities. All extremities warm. GI: + bowel sounds, soft, NTTP, slightly distended INTEGUMENTARY: Right lower extremity with surgical wound which is clean dry and intact (zip closure), otherwise normal, no lesion, rash, masses or bruising noted in extremities. MUSCULOSKELETAL: Right lower extremity has appropriate tenderness to palpation otherwise BUE and BLE normal without defect, crepitus, subluxation, effusion, arthritic changes or TTP. BUE 4+/5, good ROM, with normal tone. LLE 4+/5 good ROM, with normal tone, RLE 3/5 with decreased range of motion due to postsurgical pain NEURO: CN 2-12 grossly intact. Sensation intact in all extremities. No tremor noted in 4 extremities. POSTURE and GAIT: Sitting posture good. Balance appears reasonable. Gait slowed utilizing rolling walker with therapy support. Antalgic in nature. PSYCH: Alert, oriented x3, affect appears normal. Insight appears intact. - Constitutional Vitals: Vital Signs - 12hr 04/29/19 04/29/19 04/29/19 06:54 07:13 15:11 Temperature 97.2 F L 97.1 F L 97.0 F L Pulse Rate 89 71 94 H Respiratory 20 20 18 Rate Blood Pressure 111/72 105/68 Blood Pressure 111/72 [Right] O2 Sat by Pulse 94 95 Oximetry - Allied health notes Allied health notes reviewed: nursing, PT, OT FIMS assessment as documented by PT/OT/ST: Grooming Patient cleans teeth/dentures: Yes Patient pettit/brushes hair: Yes Patient washes, rinses and Yes dries face: Patient washes, rinses and Yes dries hands: Patient performs (no make-up/ / (100%) shaving): Grooming FIM Score 6. Modified [place] (Needs equipment/device . Extra time.) Toileting Toileting Device Commode over Toilet Patient able to: Adjust clothes before,Clean self,Adjust clothes after Patient able to perform: 3/3 (100%) Toileting FIM Score 6. Modified [place] (Needs equip. or prosth ./orth.) Social interaction/Memory/Problem solving Social Interaction FIM Score 6. Mod. [place] (Mostly appropriate. May need meds. No supv.) Memory FIM Score 7. Complete [place] (Remembers people and routines.) Problem Solving FIM Score 6. Mod. [place] (Mild difficulty or needs more time w/ complex.) Transfers Mode of Locomotion: Wheelchair Bed/Chair/Wheelchair Transfers 6. Modified [place] (Uses device, sliding FIM Score board, prosth./orth.) Toilet Transfers FIM Score 6. Modified [place] (Uses device, special seat or more time.) Patient transferred to: Shower Shower Transfers FIM Score 2. Maximal Assistance (Patient = 25% or more) Locomotion- walk/wheelchair Ambulation Distance 64 Eating Eating FIM Score 7. Complete [place] (Cuts meat, opens containers, regular diet.) Dressing-Upper body Patient retrieves clothing Yes items: Upper Body Dressing FIM Score 6. Modified [place] (Needs equipment, velcro or pros./orth.) Dressing-lower body Patient retrieves clothing Yes items: Patient applies/removes LE No prosthesis or orthosis: Lower Body Dressing FIM Score 6. Modified [place] (Needs equipment, velcro or pros./orth.) - Labs CBC & Chem 7: 04/28/19 06:23 04/28/19 06:23 Labs: Laboratory Results - last 72 hr 04/27/19 04/28/19 04/28/19 08:50 06:23 06:23 WBC 4.2 L RBC 2.73 L Hgb 9.1 L Hct 26.4 L MCV 97 MCH 33 H MCHC 34 RDW 16.8 H Plt Count 303 Sodium 135 L Potassium 4.1 Chloride 99.7 Carbon Dioxide 21 L Anion Gap 18 BUN 8 Creatinine 0.4 L Estimated GFR > 60 BUN/Creatinine Ratio 20 Glucose 95 Calcium 8.5 Urine Color Yellow Urine Turbidity Clear Urine pH 7.0 Ur Specific [place] 1.006 Urine Protein <15 mg/dl Urine Glucose (UA) Neg Urine Ketones Neg Urine Blood Neg Urine Nitrite Neg Urine Bilirubin Neg Urine Urobilinogen < 2.0 Ur Leukocyte Esterase Lg Urine WBC (Auto) 25.0 H Urine RBC (Auto) 6.0 U Epithel Cells (Auto) 3.0 Urine Bacteria (Auto) 1+ Urine Mucus Few Assessment and Plan Right hip fracture: Status post IM nail on April [address] Yen. Patient remains partial weightbearing. Monitor for any signs of wound infection. Mobility as tolerated with progressive increasing. Maintain pain control . XR shows no acute changes. Will remain partial weightbearing for 4 to 6 weeks until advanced to weightbearing as tolerated by Dr. Yen at follow-up. Epilepsy: Continue medications, seizure precautions. Monitor for any signs of seizure. Recommended to patient that she follow-up with a neurologist as she has not seen one in quite some time and gets all medications through PCP. Phenytoin and phenobarbital levels checked on admission. Phenytoin 16.1 on and phenobarbital 22.7 on 04/09/2019. Continue to monitor Iatrogenic SIADH: Previous notes reviewed from nephrology, will avoid excessive normal saline. Continue sodium chloride tablets. Monitor her electrolytes on a regular basis and replace as needed. Continue fluid restriction. Hypothyroidism: Continue replacement monitor Constipation: Continue medications. Discussed with patient her history which includes constipation and diarrhea. Adjust bowel medications and monitor for i mprovement. Anemia: Likely postsurgical. Short course of iron and vitamin C. Continue to monitor ADL dysfunction: OT will work on improving ability to perform ADLs (including assistive devices) to increase independence and decrease caregiver burden and improve functional transfers and mobility training. Difficulty walking: PT will work on gait training and proper use of assistive devices and advance as appropriate to use of stairs and outside ambulation on uneven surfaces. Unsteadiness on feet: PT will work on improving static and dynamic sitting and standing balance as well as proper use of assistive devices to decrease risk of falls. Abnormality of gait: PT will work to improve safety and efficiency of gait through neuromotor training and gait training along with instruction on proper use of assistive devices. Muscle weakness: PT & OT will work on strengthening exercises to improve functional strength including mixture of closed and open kinetic chain exercises. Debility: PT & OT will work on improving overall functional status to improve participation with ADLs, mobility and social involvement. Fatigue: PT & OT will work on improving endurance through aerobic exercises and therapeutic activity while monitoring patients tolerance for activity and vital signs as needed. Urinary tract infection: Recurrent UTI after she was treated for Pseudomonas on the acute side. Will restart IV antibiotics and await culture and sensitivity results. Pain and swelling in the right calf: Duplex ordered to rule out DVT - NEG DVT ppx: Lovenox, will send home on oral medication Pain: Continue physical modalities in therapy and pain medications as needed to achieve functional pain control. She has weaned off of IV Dilaudid and will continue to wean her off of the oral medications as we go forward in hopes of returning her home with very little in the way of pain control. Sleep: Monitor and address as needed. Bowel: Monitor and address as needed. Appetite: Monitor and address as needed. Discharge planning: Pending therapy progress and care plan meeting. Will cont inue discussion with therapy team, SW, patient and family. Look to [place] on 04/29 with HH. Restrictions/ Precautions: Falls, fluid, deaf or severely decreased hearing WB status: FWB Functional Hx: ADLs: Independent Cognition: Independent Mobility: No AD Barriers to Discharge: Decreased mobility and ability to perform self care, balance deficits, weakness Estimated Length of Stay: 10-14 days Discharge Destination: Home with family DME: Patient has a mobility deficit that significantly impairs her ability to perform MRADLs in the home which can not be sufficiently resolved with the use of a properly fitted cane/walker. The use of a manual wheelchair will significantly improve her ability to independently perform MRADLs and she will use it on a regular basis in the home, she has not expressed an unwillingness to utilize the manual wheelchair in the home and she has sufficient upper body strength to self propel the wheelchair in the home. All of these criteria were tested and documented while the patient was on the acute rehab unit. Although she is able to ambulate with a RW, she will remain partial weightbearing for 4-6 weeks per the surgeon. As such, she is unable to stand and perform MRADLs safely. She qualifies and would benefit from a wheelchair for short term rental (2months) until she is able to safely stand and perform her MRADLs.
[2019-04-29] MEDS: LACTULOSE 20 GM/30 ML ORAL LIQD PO SCH (17:55)
[2019-04-29] MEDS: ACETAMINOPHEN 325 MG TAB PO PRN (19:09)
[2019-04-29] MEDS: MELATONIN 5 MG TAB PO PRN (22:35)
[2019-04-29] MEDS: CYCLOBENZAPRINE 10 MG TAB PO PRN (22:36)
[2019-04-30] MEDS: LEVOTHYROXINE 75 MCG TAB PO SCH (05:24)
[2019-04-30] MEDS: PHENYTOIN 100 MG CAPSULE.ER PO SCH (05:24)
[2019-04-30] MEDS: CYCLOBENZAPRINE 10 MG TAB PO PRN (05:24)
[2019-04-30 07:29] VITALS: BP 110/73
[2019-04-30] MEDS: PANTOPRAZOLE 40 MG TAB PO SCH (08:14)
[2019-04-30] MEDS: SODIUM CHLORIDE 1 GM TAB PO SCH (08:14)
[2019-04-30] MEDS: PHENobarbital 32.4 MG TAB PO SCH (08:14)
[2019-04-30] MEDS: FERROUS SULFATE 325 MG TAB PO SCH (08:14)
[2019-04-30] MEDS: ASCORBIC ACID 500 MG TAB PO SCH (08:15)
[2019-04-30] MEDS: SENNOSIDES 8.6 MG TAB PO SCH (08:15)
[2019-04-30] MEDS: ENOXAPARIN 40 MG/0.4 ML INJ SUB-Q SCH (08:15)
[2019-04-30] MEDS: POLYETHYLENE GLYCOL 3350 17 GM POWDER PO SCH (08:15)
[2019-04-30] MEDS: LACTULOSE 20 GM/30 ML ORAL LIQD PO SCH (08:18)
--- NOTE | 2019-04-30 09:51 | Discharge Summary ---
Providers - Providers Date of Admission: 04/16/19 17:32 Date of discharge: 04/30/19 Attending physician: EL DUMONT III, MD 04/16/19 15:27 Consult to Dietitian/Nutrition [CONS] Routine Physician Instructions: Reason For Exam: Reason for Consult: Pt needs oral supplement Occupational Therapy Evaluate and Treat [CONS] Routine Comment: Reason For Exam: ADL dysfunction Physical Therapy Evaluation and Treat [CONS] Routine Comment: Reason For Exam: Mobility Dysfunction 04/16/19 15:39 Consult to Case Management [CONS] Routine Services Needed at Discharge: Home Health Services Notified:: cm notified Primary care physician: BATCH BLENDER Hospitalization Reason for admission: Right subtrochanteric hip fracture Condition: Good Pertinent studies: Right hip x-ray dated April 19, 2019 status post ORIF, healing right subtrochanteric hip fracture no acute changes in alignment or loosening hardware noted. KUB dated April 17, 2019 large amounts of stool present on the right side of the colon scattered gas but no obstruction. Duplex Doppler lower extremity right dated April 19, 2019 negative for DVT in the right lower extremity. Hospital course: 63-year-old female who fell attempting to get out of bed and developed right hip pain. Upon presentation to the ER she was found to have an apparent deformity of the right femur. X-ray confirmed a subtrochanteric displaced hip fracture. Orthopedics was consulted and the patient was scheduled for surgical repair. While in the early stages of her stay she did not receive her antiepileptics and did have a seizure. She has petit mal type seizures. Due to medication she also has chronic hyponatremia/SIADH. Surgery was delayed due to other emergent surgical interventions in the OR. Once she was taken back with Dr. Yen on 04/13 she had an uneventful placement of an intramedullary nail. Pain control is been primary issue for her and she has continued to utilize scheduled oral medications as well as IV Dilaudid. She has impaired hearing. After the patient was medically stabilized they were transferred for further rehabilitation. All available medical records have been reviewed. Plan of care was discussed with patient. Right hip fracture: Status post IM nail on April [address] Yen. Patient remains partial weightbearing. Monitor for any signs of wound infection. Mobility as tolerated with progressive increasing. Maintain pain control on oral medication. XR shows no acute changes. Will remain partial weightbearing for 4 to 6 weeks until advanced to weightbearing as tolerated by Dr. Yen at follow-up. Epilepsy: Continue medications, seizure precautions. Monitor for any signs of seizure. Recommended to patient that she follow-up with a neurologist as she has not seen one in quite some time and gets all medications through PCP. Phenytoin and phenobarbital levels checked on admission. Phenytoin 16.1 on 04/09/2019, 10.1 on 04/19/2019 and phenobarbital 22.7 on 04/09/2019 and 20.7 on 04/19/2019. Discussed medications with the patient during the stay and at that point it seemed that she was taking her medications as she takes them at home. Unfortunately today on discharge she mentions that she was only taking her Dilantin twice a day. We will discharge her with twice a day dosing. She has been in the normal range since being here and will need to follow-up with her PCP and or neurologist for further monitoring and adjustment of dosing. No seizure activity since being on rehab. Also discussed with her early in the admission that she may want to discuss with the neurologist the issues with driving with her current seizures. She states that she is well controlled and always knows well in advance of having a seizure. Would still recommend follow- up with a neurologist and caution when driving since she has had a seizure during this hospital admission which was likely due to missed medications. Iatrogenic SIADH: Previous notes reviewed from nephrology, will avoid excessive normal saline. Continue sodium chloride tablets. Monitor her electrolytes on a regular basis and replace as needed. Continue fluid restriction of 1 L/day. This has controlled her sodium levels very well since being on rehab. Last sodium on 04/28/2019 was 135. Urinary tract infection: UA appears consistent with urinary tract infection. First culture was contaminated with skin brayan. Have obtained a second culture via straight cath and awaiting culture and sensitivities. Patient has completed 3 doses of IV Levaquin. We will send her home with oral Levaquin and once we obtain the culture and sensitivities will call in any change of medication needed. Have informed patient of this and will also call her with any changes if we need to. Patient had a UTI on the acute care side which was also treated with Levaquin and appeared to be resolved. After having symptoms for about a week she mention to me late intercourse that she was having dysuria and frequency again. Hypothyroidism: Continue replacement, monitor. Last TSH 4.610 and free T4 1.10 on 04/09/2019. Constipation: Continue medications. Discussed with patient her history which includes constipation and diarrhea. Adjust bowel medications and monitor for improvement. She often would refuse medications but when she took them she did have bowel movements. We will send her home with availability of medications. Anemia: Likely postsurgical. Short course of iron and vitamin C. Hemoglobin improved to 9.1 on 04/28/2019 Pain well controlled on oral medication and muscle relaxer. We will send her home with a short course of these. Have counseled her on not driving while on medication and weaning off of pain medications. Patient has a mobility deficit that significantly impairs her ability to perform MRADLs in the home which can not be sufficiently resolved with the use of a properly fitted cane/walker. The use of a manual wheelchair will significantly improve her ability to independently perform MRADLs and she will use it on a regular basis in the home, she has not expressed an unwillingness to utilize the manual wheelchair in the home and she has sufficient upper body strength to self propel the wheelchair in the home. All of these criteria were tested and documented while the patient was on the acute rehab unit. Although she is able to ambulate with a RW, she will remain partial weightbearing for 4-6 weeks per the surgeon. As such, she is unable to stand and perform MRADLs safely. She qualifies and would benefit from a wheelchair for short term rental (2months) until she is able to safely stand and perform her MRADLs. Disposition: [id number] HOME UNDER HOME [facility] Time spent for discharge: > 38 mins Core Measure Documentation - Palliative Care Palliative Care/ Comfort Measures: Not Applicable - Core Measures Any of the following diagnoses?: none Exam - Physical Exam Narrative exam: MUSCULOSKELETAL SPECIALTY EXAM CONSTITUTIONAL: Well developed, well nourished, appropriately groomed EENT: Decreased hearing but does read lips RESPIRATORY: Clear to auscultation bilaterally, no increased work of breathing CARDIOVASCULAR: Regular Rate/ Rhythm, slight swelling on the right lower extremity but no edema or tenderness in BUE or BLE. Pulses palpable in all extremities. All extremities warm. GI: + bowel sounds, soft, NTTP, slightly distended INTEGUMENTARY: Right lower extremity with surgical wound which is clean dry and intact (zip closure), otherwise normal, no lesion, rash, masses or bruising noted in extremities. MUSCULOSKELETAL: Right lower extremity has appropriate tenderness to palpation otherwise BUE and BLE normal without defect, crepitus, subluxation, effusion, arthritic changes or TTP. BUE 4+/5, good ROM, with normal tone. LLE 4+/5 good ROM, with normal tone, RLE 4-/5 with decreased range of motion due to postsurgical pain NEURO: CN 2-12 grossly intact. Sensation intact in all extremities. No tremor noted in 4 extremities. POSTURE and GAIT: Sitting posture good. Balance appears reasonable. Gait slowed utilizing rolling walker with therapy support. Antalgic in nature. PSYCH: Alert, oriented x3, affect appears normal. Insight appears intact. - Constitutional Vitals: Temp Pulse Resp BP Pulse Ox 97.0 F L 83 20 110/73 97 04/30/19 06:58 04/30/19 06:58 04/30/19 06:58 04/30/19 06:58 04/30/19 06:58 Plan Activity: advance as tolerated, no driving until cleared by PCP, fall precautions Weight Bearing Status: Partial Weight Bearing (Until cleared by orthopedic surgeon (Dr. Yen stated likely 4-6 weeks)) Diet: regular Wound: open to air Special Instructions: restrict fluid intake to (1 L/day), physical therapy, occupational therapy, home health RN Durable Medical Equipment Needed Upon Discharge: Wheelchair (Short-term rental for period of time to allow her to become weightbearing as tolerated), other (3 in1) Care Plan Goals: Follow-up with PCP or neurologist for further treatment of seizure disorder and modification of Dilantin and phenobarbital. Levels were both within therapeutic limits. Continue 1 L fluid restriction for iatrogenic SIADH. Continue salt tabs as well. Follow-up with orthopedic surgeon in 2 to 3 weeks or sooner if she starts to feel any increased pain and are signs of fever, infection, bleeding, drainage from the operative site. Continue DVT prophylaxis until completed. Attempt was made to switch to oral medication however due to antiepileptic medications this could not be done safely. Follow up with: LAINE MEDEIROS MD [Primary Care Provider] - 7 Days YA YEN MD [Staff Physician] - 14 Days (2-3 weeks) Prescriptions: Phenytoin [Dilantin] 100 mg PO BID #60 Enoxaparin 40 mg SUB-Q QDAY #20 syringe Cyclobenzaprine [Flexeril 10 MG TAB] 10 mg PO TID #90 tablet levoFLOXacin [Levaquin TAB] 500 mg PO Q24H #5 tablet Melatonin [Melatonin 10MG TAB] 10 mg PO QDAY #30 PHENobarbitaL [Phenobarbital] 64.8 mg PO BID #60 oxyCODONE [roxiCODONE] 10 mg PO Q8H PRN #30 tablet PRN Reason: Pain, Moderate (4-6) Sodium Chloride 2 gm PO BID #120 tablet Levothyroxine [Synthroid] 75 mcg PO DAILY@0600 #30 tablet
== END 2019-04-30 12:34 | disposition home health service (06) | DRG 536 ==
LOC: UNDOADMIN 14:35 → 3A 14:35 → 3B 17:32
PROVIDERS: ADMIT Physical Medicine & Rehabilitation; ATTEND Physical Medicine & Rehabilitation
DX: S72.21XA Displaced subtrochanteric fracture of right femur, initial encounter for closed fracture (principal); E22.2 Syndrome of inappropriate secretion of antidiuretic hormone; N39.0 Urinary tract infection, site not specified; G40.909 Epilepsy, unspecified, not intractable, without status epilepticus; E03.9 Hypothyroidism, unspecified; D64.9 Anemia, unspecified; R53.1 Weakness; Z90.49 Acquired absence of other specified parts of digestive tract; Z85.3 Personal history of malignant neoplasm of breast; Z90.710 Acquired absence of both cervix and uterus; Z82.49 Family history of ischemic heart disease and other diseases of the circulatory system; Z83.3 Family history of diabetes mellitus; Z82.3 Family history of stroke; Z88.2 Allergy status to sulfonamides; Z91.040 Latex allergy status; Z79.899 Other long term (current) drug therapy; Z91.81 History of falling
CPT/HCPCS: 36415; 74018; 80048; 80053; 80184; 80185; 81001; 82607; 82728; 82747; 82962; 83550; 85025; 85027; 87086; 94760; G0378; J1170; J1650; J1956; J7050; Q0162